=== PATIENT | male | born 1940 | race Caucasian/White ===

== ENCOUNTER 2018-08-22 12:59 | Outpatient (CLI) | payer MEDICARE ==
--- NOTE | 2018-08-22 13:51 | RAD ---
EXAM: 4 views of the lumbosacral spine HISTORY: Low back pain COMPARISON: None FINDINGS: 4 views of the lumbosacral spine shows normal height and alignment of the vertebral bodies and intervertebral discs without fracture or subluxation. Moderate posterior facet arthrosis is seen in the lumbosacral spine. Small osteophytes are seen in the upper lumbar spine. The sacroiliac joints are unremarkable. IMPRESSION: Degenerative changes of the lumbar spine without acute osseous abnormality.
== END 2018-08-22 13:00 | disposition home or self-care (01) ==
LOC: BICRAD 12:59
PROVIDERS: ATTEND Chiropractor
DX: M54.40 Lumbago with sciatica, unspecified side (principal); M47.816 Spondylosis without myelopathy or radiculopathy, lumbar region
CPT/HCPCS: 72110

== ENCOUNTER 2019-12-14 21:08 | Observation (INO) | payer MEDICARE, OTHER ==
[~2019-12-14 21:08] MED LIST: Iopamidol 370 76% 100 ML VIAL ONE
--- NOTE | 2019-12-14 21:42 | RAD ---
Portable frontal chest radiograph: 12/14/2019 Comparison: 10/11/2015 HISTORY: Substernal chest pain FINDINGS: Lungs are clear. Heart and mediastinal contours appear within normal limits. IMPRESSION: No acute findings.
[2019-12-14] MEDS ORDERED: Nitroglycerin 0.4 MG TAB 1 EACH ONE (21:49)
[2019-12-14 21:50] LABS: #Basophils 0.1 thou/uL (0.0-0.2); #Eosinphils 0.2 thou/uL (0.0-0.7); #Lymphocytes 1.7 thou/uL (1.20-3.40); #Monocytes 0.6 thou/uL (0.11-0.59); #Neutrophils 5.9 thou/uL (1.40-6.50); %Basophils 0.7 % (0.0-1.0); %Lymphocytes 20.3 % (21.0-51.0); %Monocytes 7.2 % (0.0-10.0); %Neutrophils 69.8 % (42.0-75.0); Hemoglobin 12.5 g/dL (14.0-18.0); Mean Corpuscular HGB CONC 34.7 g/dL (32.0-36.0); Mean Corpuscular Hemoglobin 31.2 pg (27.0-31.0); Mean Corpuscular Volume 90.1 fL (78.0-98.0); Mean Platelet Volume 7.4 fL (7.4-10.4); Platelet Count 199 thou/uL (130-400); RBC Distribution Width 11.5 % (11.5-14.5); White Blood Cell (WBC) Count 8.5 thou/uL (4.8-10.8)
[2019-12-14 22:08] LABS: ALT (SGPT) 20 U/L (8-55); AST (SGOT) 17 U/L (5-34); Albumin 3.9 g/dL (3.4-4.8); Alkaline Phosphatase 88 U/L (40-110); Anion Gap 10 mmol/L (10-20); BUN (Urea Nitrogen) 24 mg/dL (8.4-25.7); Bilirubin, Total 0.3 mg/dL (0.2-1.2); Calc. Creatinine Clearance 0 mL/min (70-130); Carbon Dioxide 27 mmol/L (23-31); Chloride 103 mmol/L (98-107); Estimated GFR-MDRD 52; Globulin 2.5 g/dL (2.4-3.5); Glucose 238 mg/dL (83-110); Lipase 44 U/L (8-78); Protein, Total 6.4 g/dL (5.8-8.1); Sodium 136 mmol/L (136-145)
--- NOTE | 2019-12-14 22:44 | CT ---
CT of the abdomen and pelvis: 12/14/2019 COMPARISON: None HISTORY: Upper abdominal pain with nausea TECHNIQUE: Axial CT imaging at 5 mm intervals from the lung bases through the pubic symphysis with IV contrast. Coronal and sagittal reformatted imaging obtained. FINDINGS: The lack of oral contrast limits assessment of the bowel. Mild linear interstitial density noted within the lung bases. No free intraperitoneal air or fluid. Splenic granulomata present. The liver, pancreas, and adrenal glands demonstrate no acute findings. Subcentimeter calcified stones are seen within the gallbladder. No acute renal abnormality on either side. The prostate gland is enlarged, herniating into the bladder base. No evidence for focal bowel inflammatory change or bowel obstruction. There is fecal material within a few small bowel loops within the right lower quadrant with no associated inflammatory change or dilation. The appendix is not discretely visualized but no right lower quadrant inflammatory change n oted. There is scattered atherosclerotic calcification involving the coronary arteries as well as the abdom inal aorta and its branches. Review of the osseous structures demonstrates multilevel lower lumbar spine degenerative change with no worrisome lytic or blastic bone lesion. IMPRESSION: Numerous incidental findings as detailed above. No evidence for free intraperitoneal air or small bowel obstruction.
[2019-12-14] MEDS ORDERED: Nitroglycerin 0.4 MG TAB (25 Tab Bottle) SL PRN (23:57)
--- NOTE | 2019-12-15 00:06 | PDOC.HHP ---
Hospitalist HPI - History of Present Illness Chest pain History of Present Illness: 79-year-old gentleman with a history of coronary artery disease status post stent, history of CVA, hypertension presented to the emergency department with sudden onset of chest pain which occurred at rest today. Patient described an anterior chest pain and tightness, maximum intensity 10/10, nonradiating, associated nausea and diaphoresis, no known aggravating factors, relieved by nitroglycerin and morphine. Patient denied any cough, endorsed epigastric pain. Initial troponin in the ED is negative. EKG shows no acute ischemic changes. Checks x-ray is unremarkable and shows no acute disease. CT abdomen and pelvis done also shows no acute disease. Given patient's significant CAD risk factors, he is hospitalized for ACS rule out. Hospitalist ROS - Review of Systems Other: Except as documented, all other systems reviewed and negative. - Medication Medications: Medication Instructions Recorded Confirmed Type Aspirin [Ecotrin Low Strength] 81 mg PO DAILY 10/11/15 10/11/15 History Diazepam [Valium] 5 mg PO TID PRN 10/11/15 10/11/15 History Dutasteride [Avodart] 0.5 mg PO DAILY 10/11/15 10/11/15 History Lisinopril/Hydrochlorothiazide 1 tablet PO DAILY 10/11/15 10/11/15 History [Lisinopril-Hctz 20-25 mg Tab] Multivitamin [Multivitamins] 1 cap PO DAILY 10/11/15 10/11/15 History Omeprazole Magnesium [Prilosec OTC] 20 mg PO DAILY 10/11/15 10/11/15 History Saw Shubert 500 mg PO DAILY 10/11/15 10/11/15 History Simvastatin [Zocor] 20 mg PO QPM 10/11/15 10/11/15 History Venlafaxine HCl [Venlafaxine HCl 150 mg PO DAILY 10/11/15 10/11/15 History ER] Vit A/Vit C/Vit E/Zinc/Copper 2 tablet PO BID 10/11/15 10/11/15 History [ICaps AREDS Formula] metFORMIN HCl [Metformin ER 1,000 mg PO DAILY 10/11/15 10/11/15 History Gastric] Clopidogrel Bisulfate [Plavix] 75 mg PO DAILY 10/12/15 10/12/15 History Hospitalist History - Past Medical History Cardiac: reports: CAD, HTN 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 Endocrine: reports: Diabetes - Past Surgical History Past Surgical History: reports: Other (Cardiac catheterization) Other Surgical History: Multiple ear surgeries including cochlear implant. - Family History Family History: reports: cardiac disorder (Mother and father) - Social History Smoking Status: Former smoker Alcohol: reports: None Drugs: reports: none - Exam General Appearance: NAD, awake alert Eye: PERRL, anicteric sclera ENT: normocephalic atraumatic, no oropharyngeal lesions, moist mucosa ENT - other findings: Hard of hearing. Neck: supple, symmetric, no JVD, no thyromegaly Heart: RRR, no murmur, no gallops Respiratory: CTAB, no wheezes, no rales, no ronchi, normal chest expansion Gastrointestinal: soft, non-distended, normal bowel sounds, tender to palpation (Mild epigastric tenderness) Extremities: no cyanosis, no edema Skin: normal turgor, no rashes Neurological: cranial nerve grossly intact, no weakness, no focal deficits Musculoskeletal: normal tone, normal strength Psychiatric: normal affect, normal behavior, A&O x 3 Hospitalist Results - Labs Result Diagrams: 12/14/19 21:33 12/14/19 21:33 Lab results: WBC 8.5 thou/uL (4.8-10.8) 12/14/19 21:33 Hgb 12.5 g/dL (14.0-18.0) L 12/14/19 21:33 Hct 36.0 % (42.0-52.0) L 12/14/19 21:33 MCV 90.1 fL (78.0-98.0) 12/14/19 21:33 Plt Count 199 thou/uL (130-400) 12/14/19 21:33 Neutrophils % 69.8 % (42.0-75.0) 12/14/19 21:33 Sodium 136 mmol/L (136-145) 12/14/19 21:33 Potassium 4.0 mmol/L (3.5-5.1) 12/14/19 21:33 Chloride 103 mmol/L (98-107) 12/14/19 21:33 Carbon Dioxide 27 mmol/L (23-31) 10/18/20 21:33 BUN 24 mg/dL (8.4-25.7) 12/14/19 21:33 Creatinine 1.33 mg/dL (0.7-1.3) H 12/14/19 21:33 Glucose 238 mg/dL (83-110) H 12/14/19 21:33 Calcium 9.0 mg/dL (7.8-10.44) 12/14/19 21:33 Total Bilirubin 0.3 mg/dL (0.2-1.2) 12/14/19 21:33 AST 17 U/L (5-34) 12/14/19 21:33 ALT 20 U/L (8-55) 12/14/19 21:33 Alkaline Phosphatase 88 U/L (40-110) 12/14/19 21:33 Troponin I Less than 0.010 ng/mL (< 0.028) 12/14/19 21:33 Serum Total Protein 6.4 g/dL (5.8-8.1) 12/14/19 21:33 Albumin 3.9 g/dL (3.4-4.8) 12/14/19 21:33 Lipase 44 U/L (8-78) 12/14/19 21:33 - EKG Interpretation EKG: Normal sinus rhythm. - Radiology Interpretation Chest x-ray Status: report reviewed by me (No acute disease.) Hospitalist H&P A/P - Problem (1) Chest pain Code(s): R07.9 - CHEST PAIN, UNSPECIFIED Status: Acute (2) Coronary artery disease Code(s): I25.10 - ATHSCL HEART DISEASE OF [place] CORONARY ARTERY W/O ANG PCTRS Status: Chronic (3) Diabetes mellitus type 2 in obese Code(s): E11.69 - TYPE 2 DIABETES MELLITUS WITH OTHER SPECIFIED COMPLICATION; E66.9 - OBESITY, UNSPECIFIED Status: Chronic (4) Hypertension Code(s): I10 - ESSENTIAL (PRIMARY) HYPERTENSION Status: Chronic - Plan Plan: Placed under observation. Trend troponin. Continue home dose aspirin and Plavix. Add beta-magdaleno. 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 Will request nuclear stress test. Cardiology consult.
[2019-12-15 02:03] LABS: Troponin I Less than 0.010 ng/mL (< 0.028)
[2019-12-15 04:33] VITALS: BMI 34.4
[2019-12-15 05:25] LABS: PTT 30.9 sec (22.9-36.1)
[2019-12-15 05:26] LABS: Prothrombin Time 12.9 sec (12.0-14.7)
[2019-12-15 05:50] LABS: Troponin I Less than 0.010 ng/mL (< 0.028)
--- NOTE | 2019-12-15 06:28 | PDOC.FMACP ---
Advance Care Planning - Problem (1) Chest pain Status: Acute Code(s): R07.9 - CHEST PAIN, UNSPECIFIED (2) Coronary artery disease Status: Chronic Code(s): I25.10 - ATHSCL HEART DISEASE OF [place] CORONARY ARTERY W/O ANG PCTRS (3) Diabetes mellitus type 2 in obese Status: Chronic Code(s): E11.69 - TYPE 2 DIABETES MELLITUS WITH OTHER SPECIFIED COMPLICATION; E66.9 - OBESITY, UNSPECIFIED (4) Hypertension Status: Chronic Code(s): I10 - ESSENTIAL (PRIMARY) HYPERTENSION - Note Summary: Advanced Care Planning was discussed. The diagnosis, prognosis and goals of care were discussed. Appropriate forms and documentation to accomplish the goals of care were discussed. All questions were answered. Patient wishes to be full code. No life support. He stated he is in the process of documenting his will. No living will. His son Rikki Geller is medical decision maker. I discussed the need to document a living Will and MPOA with him. Time Spent (mins): 17
[2019-12-15] MEDS ORDERED: Aspirin 81 mg Enteric Coated Tablet PO SCH (09:00)
[2019-12-15] MEDS ORDERED: Enoxaparin Sodium 40 MG/0.4 ML SYRINGE SC SCH (09:00)
[2019-12-15] MEDS ORDERED: Clopidogrel Bisulfate 75 MG TAB PO SCH (09:00)
[2019-12-15 11:10] LABS: SARS-CoV-2 MS2 Positive; SARS-CoV-2 N Gene Negative; SARS-CoV-2 S Gene Negative; SARS-CoV-2 by NAA Not Detected (NotDetected); SARS-CoV-2 orf1ab Negative
--- NOTE | 2019-12-15 11:30 | CON ---
DATE OF CONSULTATION: 12/15/2019 INDICATION FOR CONSULTATION: An 79-year-old patient with history of known coronary artery disease, who underwent angioplasty and stent placement several years ago by Dr. Sukhwinder Villanueva at [facility]. He has not been seen by Dr. Villanueva in over five years. He normally follows up with his primary care physician, Dr. Wan. He was sitting at home yesterday after he had eaten two hot dogs, had some 7up and also some cookies and had sudden onset of lower sternal and abdominal pain. The pain did not radiate, but did have it across the abdominal area. He had chest pain in the mid to lower chest. He describes the pain as being 10/10. The pain lasted for at least 15 minutes. An ambulance was called. He still continued to have pain. In the ambulance, he was given nitroglycerin paste and also sublingual nitroglycerin. When he arrived in the emergency room, he was still having chest pain 7 to 8/10. Enzymes have been negative x3. EKG was unremarkable and at this time, he still has some abdominal discomfort, but otherwise has been doing quite well. Also with pain, he developed nausea and diaphoresis. He said he could not breathe due to the pain and even now when he takes a deep breath or coughs, he still has some abdominal discomfort. It would appear that this may likely be GI, since the EKG is unremarkable after having pain 7 to 8/10 in the emergency room and no EKG changes to indicate ischemia and cardiac enzymes are negative. He has been admitted and ruled out for myocardial infarction. The enzymes are negative. A stress test has been ordered; however, the patient did suffer a CVA in 2000 and is unable to lift his right arm above the level of the shoulder, making it very difficult to get the arm out of the way for the nuclear evaluation. He has had his last stress test was more than [address] Sukhwinder Villanueva[address] He attempt to do a treadmill. He was unable to do this successfully either and he apparently had no stress test since that time, but has been very active, working outside and staying busy without symptoms until yesterday when he had the sudden onset of pain, which he describes as just a terrible pain. He did not state it as burning or heavy pressure. He just said it was so bad he could not explain what it was. PAST MEDICAL HISTORY: Significant for coronary artery disease, angioplasty and stent placement, and CVA in 2000. He has some right-sided deficits affecting the right arm and right leg, but the right leg is relatively reasonable. He can do what he wants to do most of the time. He has a history of diabetes. He tells me he did not take any medicines for diabetes; however. He has history of hypertension. He has had eye surgery. He has had skin cancers. He has had cochlear implants. He has had cataract surgery. He states he has been diagnosed with COPD and has irritable bowel syndrome. MEDICATIONS: He is uncertain as to which medications he is taking, but does know he is taking aspirin a day and he takes one Valium at night. He also was taking blood pressure medications, which he believes is lisinopril. His son is to bring his list of his medications. He reportedly is also taking medications for his cholesterol, but we do not have the correct list of his medications. He says he does not take any meds for the DM. SOCIAL HISTORY: He smoked in the past, but no longer smokes. There is no significant alcohol use. He still stays very active. He lives at home. ALLERGIES: NONE. REVIEW OF SYSTEMS: HEENT: He has false teeth. He has had cataract surgery. He has hearing aid with a cochlear implant on the right side. He has had also I believe on the left side, he has had some type of surgery on the ear. I believe he has had stapes implant. PULMONARY: He denies any history of any recent shortness of breath, asthma, or emphysema, but does state that he has been diagnosed in the past with COPD, but denies any shortness of breath. CARDIOVASCULAR: He has had no palpitations. He mainly complains of pain as noted in the history of present illness. ABDOMEN: He says he has irritable bowel syndrome. He says he does not eat correctly. Otherwise, no nausea, vomiting, or diarrhea. He said he does have loose stools or he has urgency, most likely due to irritable bowel syndrome. : He had no urinary complaints such as dysuria, polyuria, or hematuria. He does have prostate problems. He has benign prostatic hypertrophy and I believe he is taking saw palmetto. EXTREMITIES: He has some residual weakness in the right lower extremity and also was unable to lift the right arm above the level of the shoulder due to the previous CVA. He gets leg cramps at night. NEUROLOGIC: He has had no history of seizures or syncope, but when he did say he had a syncopal episode about a year ago, he said he got up out of a chair and fell down, had a laceration to his head. Apparently, he did not seek medical treatment at that time. He has had no further episodes of syncope. This may have been due to hypotension, apparently, he has not been evaluated fully. He has had no further episodes. PHYSICAL EXAMINATION: GENERAL: Reveals a well-developed elderly gentleman, who is in no acute distress at this time. He is alert. He is oriented. VITAL SIGNS: Show a blood pressure of 143/67 and respiratory rate is 20. He is afebrile. Heart rates in the 60s and shows a sinus rhythm. HEENT: Shows the head to be normocephalic and atraumatic. He has bilateral carotid pulses without bruits. He has a right posterior occipital area cochlear implant. CHEST: Clear to auscultation without any rales, rhonchi, or wheezing. CARDIOVASCULAR: Revealed a regular rate and rhythm at this time. There were no significant murmurs, heaves, thrills, bruits, or rubs noted. ABDOMEN: Shows some tenderness in the mid abdominal area and upper epigastric area, but I cannot palpate any masses. Positive bowel sounds are present. EXTREMITIES: Showed no clubbing, cyanosis, or edema. Pedal pulses are present. He does have some stiffness in the right upper extremity, where he cannot lift it. He has some limitation of movement I should say. He is unable to lift that elbow at least even to the level of the shoulder hardly. SKIN: Warm and dry. LABORATORY DATA: Showed cardiac enzymes are negative x3. WBC was 8.5, hemoglobin was 12.5, and platelet count was 199,000. AST was 17. His blood sugar was 238, BUN was 24, creatinine 1.33, sodium was 136, and potassium 4.0. IMPRESSION AND PLAN: 1. Chest pain, which is most likely noncardiac since the patient had no EKG changes and still had pain 7 to 8/10 when he arrived in the emergency room and negative enzymes x3, even though he does have a history of coronary artery disease in the past and stent placement. There is no indication that this was cardiac at this time. The pain was not relieved by the nitroglycerin. He may have had some mild relief, which certainly could be due to esophageal spasm, but also with smooth muscle could relieve some of the discomfort. His chest pain is still only minimal at this time, but mainly appears to be more abdominal and epigastric area. He does have some discomfort when he coughs or takes a deep breath. 2. Diabetes. He tells me he is not taking any medications for this and certainly may be the case with a blood sugar of 238. His son is to call us with a list of the medications. 3. Hypertension. This is under relatively good control at this time and can be monitored on outpatient basis either by the primary care physician or by the commissary clerk. At this time, I believe the patient since he is unable to take a stress test because he cannot lift the arm and is most likely not able to do a good treadmill study. There is no indication at this time to proceed with cardiac catheterization since the enzymes are negative and EKG is unremarkable and his pain is significantly improved. I would suggest perhaps he see a Gastroenterology for possible upper endoscopy. Otherwise, I believe he is stable for discharge. Job ID: [id number] [facility]
[2019-12-15 12:20] VITALS: BP 139/63; TEMP 98.1
--- NOTE | 2019-12-16 10:46 | DIS ---
DATE OF ADMISSION: 12/14/2019 DATE OF DISCHARGE: 12/15/2019 DISCHARGE DISPOSITION: To home. PRIMARY DISCHARGE DIAGNOSIS: Noncardiac chest pain. SECONDARY DISCHARGE DIAGNOSES: History of coronary artery disease, hypertension, history of cerebrovascular accident, depression, benign prostatic hypertrophy, and diabetes mellitus type 2. PROCEDURES DONE DURING HOSPITALIZATION: CT abdomen and pelvis done, showed no evidence of free intraperitoneal air or small-bowel obstruction. Chest x-ray done, showed no acute finding. H and H 12 and 36, platelet count 199, white count of 8.5 with 69% neutrophils. COVID-19 PCR was negative on 12/15/2019. BUN 24, creatinine 1.3. Troponin x3 negative. DISCHARGE MEDICATIONS: The patient to continue all his home medication as before. 1. Aspirin 81 mg p.o. daily. 2. Lipitor 80 mg p.o. daily. 3. Escitalopram 10 mg p.o. daily. 4. Finasteride 5 mg p.o. daily. 5. Hydralazine 5 mg p.o. daily. 6. Lisinopril with hydrochlorothiazide 20/25 mg one tablet daily. 7. Multivitamin one capsule daily. 8. Omeprazole 40 mg daily. 9. Valium 5 mg p.o. 3 times daily p.r.n. ALLERGIES: NO KNOWN DRUG ALLERGIES. DISCHARGE PLAN: The patient to follow up with his primary care physician in 1 week, and he also needs to re-establish the followup with Dr. Sukhwinder Villanueva, his events specialist. BRIEF COURSE DURING HOSPITALIZATION: The patient initially came in with complaints of chest discomfort which was more in the epigastric area. It was associated with some nausea and diaphoresis. In view of multiple risk factors, the patient was placed under observation on telemetry and ACS evidence based protocol followed. Three sets of troponin were negative. Chest x-ray and CT of the abdomen and pelvis did not reveal any acute pathology. The patient did not want to undergo nuclear stress test as he could not lift his arm up. He was evaluated by Dr. Vergara for Cardiology. The patient's pain was noncardiac in nature, and he is being discharged to home. He has been chest pain free and ambulating and eating well prior to discharge. He needs to follow up with his primary care physician in 1 week. Please note, I have seen and examined the patient on the day of discharge. Job ID: [id number]
== END 2019-12-15 15:42 | disposition home or self-care (01) ==
LOC: ERS 21:08 → 2SW 23:29
PROVIDERS: ADMIT Internal Medicine; ATTEND Internal Medicine
DX: R07.89 Other chest pain (principal); I25.10 Atherosclerotic heart disease of native coronary artery without angina pectoris; I10 Essential (primary) hypertension; E11.9 Type 2 diabetes mellitus without complications; F32.9 Major depressive disorder, single episode, unspecified; N40.0 Benign prostatic hyperplasia without lower urinary tract symptoms; E66.9 Obesity, unspecified; Z68.34 Body mass index [BMI] 34.0-34.9, adult; Z20.828 Contact with and (suspected) exposure to other viral communicable diseases; Z79.82 Long term (current) use of aspirin; Z79.899 Other long term (current) drug therapy; Z86.73 Personal history of transient ischemic attack (TIA), and cerebral infarction without residual deficits; Z87.891 Personal history of nicotine dependence; Z95.5 Presence of coronary angioplasty implant and graft
CPT/HCPCS: 71045; 74177; 80053; 82962; 83690; 84484 ×3; 85025; 85610; 85730; 93005; 94760; 99285; U0003; 36415; 36416; 87635; 96372; G0378; J1650; Q9967

== ENCOUNTER 2020-02-03 17:50 | Inpatient (IN) | payer MEDICARE ==
[~2020-02-03 17:50] MED LIST changes: -Iopamidol 370 76% 100 ML VIAL ONE; +Iopamidol-370 76% 500 ML 1 ML ONE
[2020-02-03] MEDS ORDERED: Albuterol 200 PUFF (6.7GM INHALER) ONE (18:39)
--- NOTE | 2020-02-03 18:45 | RAD ---
XR Chest 1 View Portable History: Covid pneumonia Comparison: Radiograph December 14, 2019 Findings: Abnormal peripheral and perihilar airspace opacities. No pneumothorax. Cardiac silhouette a nd mediastinal contours are within normal limits. No acute osseous abnormality. Advanced degenerative changes of both glenohumeral joints. Impression: Commonly reported imaging findings of COVID-19 pneumonia.
[2020-02-03] MEDS ORDERED: cefTRIAXone\\ROCEPHIN 2 GM VIAL ONE (18:52)
[2020-02-03 19:11] LABS: #Lymphocytes 0.6 thou/uL (1.20-3.40); #Monocytes 0.7 thou/uL (0.11-0.59); %Basophils 0.1 % (0.0-1.0); %Eosinophils 0.2 % (0.0-10.0); %Lymphocytes 4.2 % (21.0-51.0); %Monocytes 4.7 % (0.0-10.0); %Neutrophils 90.9 % (42.0-75.0); Hemoglobin 11.9 g/dL (14.0-18.0); Mean Corpuscular HGB CONC 35.3 g/dL (32.0-36.0); Mean Corpuscular Hemoglobin 31.2 pg (27.0-31.0); Mean Corpuscular Volume 88.5 fL (78.0-98.0); Mean Platelet Volume 7.3 fL (7.4-10.4); Platelet Count 238 thou/uL (130-400); White Blood Cell (WBC) Count 15.4 thou/uL (4.8-10.8)
[2020-02-03 19:33] LABS: ALT (SGPT) 25 U/L (8-55); AST (SGOT) 20 U/L (5-34); Albumin 3.4 g/dL (3.4-4.8); Alkaline Phosphatase 70 U/L (40-110); Anion Gap 15 mmol/L (10-20); BUN (Urea Nitrogen) 29 mg/dL (8.4-25.7); Bilirubin, Total 0.4 mg/dL (0.2-1.2); Calc. Creatinine Clearance 0 mL/min (70-130); Carbon Dioxide 21 mmol/L (23-31); Chloride 101 mmol/L (98-107); Globulin 2.5 g/dL (2.4-3.5); Glucose 358 mg/dL (83-110); Potassium 4.3 mmol/L (3.5-5.1); Protein, Total 5.9 g/dL (5.8-8.1); Sodium 133 mmol/L (136-145)
[2020-02-03] MEDS ORDERED: Lorazepam 2 MG/ML VIAL ONE (22:10)
[2020-02-03 22:15] LABS: Lactic Acid 1.7 mmol/L (0.5-2.2)
--- NOTE | 2020-02-03 22:29 | CT ---
CTA Angio Chest W WO Con History: Covid pneumonia with shortness of breath Comparison: Chest radiograph same day Findings: CT angiogram chest performed after the intravenous administration of contrast. 3-D renderin g provided. No proximal segmental pulmonary arterial filling defect. Calcified granulomas of the spleen. No pericardial effusion. Reactive mediastinal lymph nodes. Mild-moderate peripheral patchy airspace opacities of the lungs along with a component of peripheral fibrosis. No pneumothorax or pneumomediastinum. Small volume to be within the distal trachea. Thoracic spine is intact. Sternum and manubrium are intact. No acute osseous abnormality. Impression: 1. Mild Imaging findings of Covid-19 pneumonia. No pneumothorax or pneumomediastinum. 2. No pulmonary embolism.
[2020-02-03] MEDS ORDERED: Acetaminophen 325 MG TAB PO PRN (23:48)
[2020-02-03] MEDS ORDERED: Albuterol Sulfate 2.5 mg/3 ml Neb NEB PRN (23:53)
--- NOTE | 2020-02-04 00:13 | PDOC.BPN ---
- Brief Progress Note [id number] HP dictated
[2020-02-04] MEDS ORDERED: Albuterol 200 PUFF (6.7GM INHALER) INH PRN (00:15)
[2020-02-04] MEDS ORDERED: Dextrose 5% in Water 1,000 ML IV PRN (00:17)
[2020-02-04] MEDS ORDERED: Dextrose 50% Abboject 50 ML SYRINGE SLOW IVP PRN (00:17)
--- NOTE | 2020-02-04 01:01 | HP ---
CHIEF COMPLAINT: Shortness of breath. HISTORY OF PRESENT ILLNESS: An 79-year-old male with past medical history of COPD, CVA with right-sided deficits, hyperlipidemia, diabetes, hypertension, skin cancer, among others, presents to the emergency room with worsening shortness of breath. The patient was recently diagnosed COVID on Sunday and has been having increasing shortness of breath since then. In the emergency room, the patient was in obvious respiratory distress, tachypneic. The patient was placed on nasal cannula 2 L. Oxygen saturation 94%. Workup in the emergency room, the patient was found to have glucose of 358, BUN is 29, creatinine 1.3, sodium 133, D-dimer was 2.0. Chest x-ray showed findings compatible with COVID pneumonia. The patient in the emergency room was placed on oxygen and being admitted to the hospital for further management. PAST MEDICAL HISTORY: As mentioned above in history of present illness. PAST SURGICAL HISTORY: 1. Cardiac stent. 2. Multiple ear surgeries. PAST PSYCHIATRIC HISTORY: Anxiety and depression. SOCIAL HISTORY: He lives at home with family. Denies alcohol use. Denies drug use. He is a former cigarette smoker. ALLERGIES: NO KNOWN ALLERGIES. HOME MEDICATIONS: See home medication reconciliation form for updated medications. REVIEW OF SYSTEMS: Review of 14 systems negative except what is mentioned in history of present illness. PHYSICAL EXAMINATION: GENERAL: Patient is awake, in moderate respiratory distress. VITAL SIGNS: Blood pressure 170/45, respiratory rate is 24, temperature 98.1, oxygen saturation is 93% on 3 L nasal cannula. HEAD AND NECK: Normocephalic, atraumatic. NECK: Supple. CHEST: Coarse bilateral breath sounds. Respirations are labored. HEART: S1, S2 regular. ABDOMEN: Soft. Bowel sounds present. NEUROLOGIC: Awake. PSYCH: Unable to assess. EXTREMITIES: No clubbing, no cyanosis. GENITOURINARY: No suprapubic tenderness. No flank tenderness. LABORATORY DATA: As mentioned above in history of present illness. IMAGING STUDIES: As mentioned above in history of present illness. ASSESSMENT: 1. Pneumonia secondary to COVID-19 virus infection. 2. Chronic obstructive pulmonary disease with exacerbation. 3. COVID-19 virus infection. 4. Diabetes mellitus, hyperglycemia. 5. Acute kidney injury. 6. Hypertension. PLAN: 1. Admit. 2. Oxygen to keep saturation more than 92%. 3. Bronchodilators. 4. IV dexamethasone. 5. Reconcile home medications. 6. DVT prophylaxis as appropriate. 7. Expected length of stay, 2 midnights or more. Job ID: [id number]
[2020-02-04] MEDS ORDERED: HumaLOG 300 UNITS/3 ML VIAL ONE (03:42)
[2020-02-04] MEDS: HumaLOG 300 UNITS/3 ML VIAL SC PRN ×2 (03:49→21:49)
[2020-02-04 06:42] VITALS: BMI 33.3
[2020-02-04] MEDS: Enoxaparin Sodium 40 MG/0.4 ML SYRINGE SC SCH (07:45)
[2020-02-04] MEDS: Famotidine/PF 20 mg/2ml Vial SLOW IVP SCH ×2 (07:45→21:27)
--- NOTE | 2020-02-04 09:48 | PDOC.HOSPP ---
- Subjective Encounter Date: 02/04/20 Encounter Time: 09:45 Subjective: cough, sob especially with exertion, pleuritic chest pain - Objective Vital Signs & Weight: Vital Signs (12 hours) Temp Pulse Resp BP Pulse Ox 02/04/20 09:11 99 02/04/20 08:36 97.9 F 73 16 131/66 99 02/04/20 06:25 97.7 F 76 20 170/71 H 99 Weight Weight 231 lb 12.8 oz Result Diagrams: 02/03/20 18:56 02/03/20 18:56 Additional Labs: Accuchecks 02/04/20 02/04/20 04:37 03:03 POC Glucose 275 H 274 H Hospitalist ROS - Medication Medications: Active Medications Generic Name Dose Route Start Last Admin Trade Name Freq PRN Reason Stop Dose Admin Enoxaparin Sodium 40 mg 02/04/20 09:00 02/04/20 07:45 Enoxaparin Sodium 40 Mg/0.4 Ml Syringe SC 40 mg 0900 ABHILASH Administration Famotidine 20 mg 02/04/20 09:00 02/04/20 07:45 Famotidine/Pf 20 Mg/2ml Vial SLOW IVP 20 mg Q12HR ABHILASH Administration Insulin Human Lispro 0 units 02/04/20 00:17 02/04/20 03:49 Humalog 300 Units/3 Ml Vial SC 6 units .MODERATE SLIDING SC PRN Administration Moderate Correctional Scale - Exam General Appearance: awake alert Neck: no JVD Heart: RRR, no murmur Respiratory - other findings: fine rales post lungs Gastrointestinal: soft, non-tender, normal bowel sounds Extremities: no edema Hosp A/P (1) Pneumonia due to COVID-19 virus Code(s): U07.1 - COVID-19; J12.89 - OTHER VIRAL PNEUMONIA Status: Acute (2) DM type 2 (diabetes mellitus, type 2) Status: Acute Qualifiers: Diabetes mellitus infantry assaultman insulin use: without senior care use Diabetes mellitus complication status: with kidney complications Diabetes mellitus complication detail: with other kidney complication Qualified Code(s): E11.29 - Type 2 diabetes mellitus with other diabetic kidney complication (3) Acute respiratory failure with hypoxemia Code(s): J96.01 - ACUTE RESPIRATORY FAILURE WITH HYPOXIA Status: Acute (4) Coronary artery disease Code(s): I25.10 - ATHSCL HEART DISEASE OF [place] CORONARY ARTERY W/O ANG PCTRS Status: Chronic Qualifiers: Coronary Disease-Associated Artery/Lesion type: [place] artery [place] vs. transplanted heart: [place] heart Associated angina: without angina Qualified Code(s): I25.10 - Atherosclerotic heart disease of [place] coronary artery without angina pectoris (5) Hypertension Code(s): I10 - ESSENTIAL (PRIMARY) HYPERTENSION Status: Chronic - Plan cont iv steroids cont O2 supplement ordered inflammatory markers will discuss with ID
[2020-02-04] MEDS: Dexamethasone 6 MG in Sodium Chloride 0.9% 50 ML IVPB SCH (10:48)
[2020-02-04] MEDS ORDERED: Aspirin 81 mg Enteric Coated Tablet PO SCH (20:45)
[2020-02-04] MEDS: Atorvastatin Calcium 40 MG TAB PO SCH (21:27)
[2020-02-04] MEDS: Diazepam 5 MG TAB PO PRN (21:28)
[2020-02-05] MEDS: Enoxaparin Sodium 40 MG/0.4 ML SYRINGE SC SCH (07:49)
[2020-02-05] MEDS: Aspirin 81 mg Enteric Coated Tablet PO SCH (07:49)
[2020-02-05] MEDS: Famotidine/PF 20 mg/2ml Vial SLOW IVP SCH ×2 (07:49→21:01)
[2020-02-05] MEDS ORDERED: FLU VACC QS2020-21(65YR UP)/PF 240 MCG/0.7 ML SYRINGE IM ONE (08:45)
[2020-02-05 10:15] LABS: Hemoglobin 12.4 g/dL (14.0-18.0); Mean Corpuscular Hemoglobin 30.7 pg (27.0-31.0); Mean Corpuscular Volume 90.4 fL (78.0-98.0); Mean Platelet Volume 7.1 fL (7.4-10.4); Platelet Count 266 thou/uL (130-400); RBC Distribution Width 11.2 % (11.5-14.5); Red Blood Cell (RBC) Count 4.05 mill/uL (4.70-6.10); White Blood Cell (WBC) Count 12.8 thou/uL (4.8-10.8)
[2020-02-05 10:38] LABS: Anion Gap 12 mmol/L (10-20); BUN (Urea Nitrogen) 22 mg/dL (8.4-25.7); Calc. Creatinine Clearance 91 mL/min (70-130); Calcium 9.1 mg/dL (7.8-10.44); Carbon Dioxide 27 mmol/L (23-31); Chloride 103 mmol/L (98-107); Glucose 131 mg/dL (83-110); Sodium 138 mmol/L (136-145)
[2020-02-05] MEDS: Dexamethasone 6 MG in Sodium Chloride 0.9% 50 ML IVPB SCH (10:52)
[2020-02-05] MEDS: HumaLOG 300 UNITS/3 ML VIAL SC PRN ×3 (11:00→21:26)
--- NOTE | 2020-02-05 15:08 | PDOC.HOSPP ---
- Subjective Encounter Date: 02/05/20 Encounter Time: 09:00 Subjective: F/u: COVID The patient states his [facility] nurse found him with hypoxia and he was diagnosed with COVID last Sunday. He has only a minimal cough that he can't clear up as much. His oxygen saturation was noted to be 100% on 2L nasal cannula. - Objective Vital Signs & Weight: Vital Signs (12 hours) Temp Pulse Resp BP Pulse Ox 02/05/20 11:38 97.8 F 62 16 116/65 100 02/05/20 08:47 98 02/05/20 08:45 98.3 F 52 L 16 117/67 98 02/05/20 05:00 98.0 F 52 L 18 123/67 95 Weight Weight 231 lb 12.8 oz I&O: 02/04/20 02/05/20 02/06/20 06:59 06:59 06:59 Intake Total 1010 Balance 1010 Result Diagrams: 02/05/20 09:49 02/05/20 09:49 Additional Labs: Accuchecks 02/05/20 02/05/20 02/04/20 10:56 05:58 21:42 POC Glucose 197 H 173 H 262 H 02/04/20 15:49 POC Glucose 158 H Hospitalist ROS - Review of Systems Constitutional: denies: fever, chills - Medication Medications: Active Medications Generic Name Dose Route Start Last Admin Trade Name Freq PRN Reason Stop Dose Admin Aspirin 81 mg 02/05/20 09:00 02/05/20 07:49 Aspirin 81 Mg Enteric Coated Tablet PO 81 mg DAILY ABHILASH Administration Atorvastatin Calcium 80 mg 02/04/20 21:00 02/04/20 21:27 Atorvastatin Calcium 40 Mg Tab PO 80 mg HS ABHILASH Administration Diazepam 5 mg 02/04/20 19:44 02/04/20 21:28 Diazepam 5 Mg Tab PO 5 mg TID PRN Administration Anxiety Enoxaparin Sodium 40 mg 02/04/20 09:00 02/05/20 07:49 Enoxaparin Sodium 40 Mg/0.4 Ml Syringe SC 40 mg 0900 ABHILASH Administration Famotidine 20 mg 02/04/20 09:00 02/05/20 07:49 Famotidine/Pf 20 Mg/2ml Vial SLOW IVP 20 mg Q12HR ABHILASH Administration Dexamethasone 6 mg/ Sodium 50.6 mls @ 100 mls/hr 02/04/20 12:00 02/05/20 10:52 Chloride IVPB 50.6 mls 1200 ABHILASH Administration Insulin Human Lispro 0 units 02/04/20 00:17 02/05/20 11:00 Humalog 300 Units/3 Ml Vial SC 2 units .MODERATE SLIDING SC PRN Administration Moderate Correctional Scale - Exam General Appearance: NAD, awake alert Eye: PERRL, anicteric sclera ENT: normocephalic atraumatic, no oropharyngeal lesions Neck: no JVD Heart: RRR, no murmur, no gallops, no rubs Respiratory: CTAB, no wheezes, no rales, no ronchi Gastrointestinal: soft, non-tender, non-distended, normal bowel sounds Extremities: no cyanosis, no clubbing, no edema Skin: normal turgor, no lesions, no rashes Neurological: cranial nerve grossly intact, normal sensation to touch, no weakness Musculoskeletal: normal tone, normal strength, no muscle wasting Psychiatric: A&O x 3 Hosp A/P - Plan CTA: patchy airspace opacities, mediastinal lymphadenopathy and peripheral fibrosis THis is an 79 year old male with COVID who presented with increasing hypoxia and diagnosed with COVID pneumonia Acute hypoxic respiratory failure secondary to COVID pneumonia - CTA shows patchy airspace opacities. He is on 2L of oxygen. Will attempt to wean oxygen down. WBC has been decreased to 12.8 - will start doxycycline. D-dimer is 2, will repeat tomorrow if trending up will consider adding anticoagulation - discussed with Dr. Brooks, will add remdesivir as well given advanced age CAD - continue aspirin and statin Depression - continue celexa GERD - will resume protonix BPH - continue finasteride Dispo: attempt to wean oxygen down prior to dc
[2020-02-05] MEDS ORDERED: REMDESIVIR (EUA) 200 MG in Sodium Chloride 0.9% 250 ML 210 ML IV SCH (16:00)
[2020-02-05] MEDS: Doxycycline 100 MG CAP PO SCH (21:01)
[2020-02-05] MEDS: guaiFENesin ER 600 MG TAB PO SCH (21:01)
[2020-02-05] MEDS: Diazepam 5 MG TAB PO PRN (21:01)
[2020-02-05] MEDS: Atorvastatin Calcium 40 MG TAB PO SCH (21:01)
[2020-02-06] MEDS: Enoxaparin Sodium 40 MG/0.4 ML SYRINGE SC SCH (08:20)
[2020-02-06] MEDS: Escitalopram Oxalate 10 mg Tablet PO SCH (08:20)
[2020-02-06] MEDS: Doxycycline 100 MG CAP PO SCH ×2 (08:20→21:32)
[2020-02-06] MEDS: Finasteride 5 MG TAB PO SCH (08:20)
[2020-02-06] MEDS: guaiFENesin ER 600 MG TAB PO SCH ×2 (08:20→21:32)
[2020-02-06] MEDS: Aspirin 81 mg Enteric Coated Tablet PO SCH (08:20)
[2020-02-06] MEDS: Famotidine/PF 20 mg/2ml Vial SLOW IVP SCH ×2 (08:20→21:32)
[2020-02-06] MEDS: Dexamethasone 6 MG in Sodium Chloride 0.9% 50 ML IVPB SCH (11:21)
--- NOTE | 2020-02-06 13:20 | PQF ---
CLINICAL DOCUMENTATION CLARIFICATION FORM: Dear Dr. Larsen Date: 02/06/20 Please exercise your independent, professional judgment in responding to the clarification form. Clinical indicators are provided on the bottom of this form for your review. Please check appropriate box(es): [ ] Sepsis due to: [ ] Severe sepsis with associated acute organ dysfunction: [ ] Acute Respiratory Failure [ ] Acute Kidney injury w/o ATN [ ] Acute Kidney Injury w ATN [ ] Encephalopathy (metabolic) (septic) [ ] Disseminated Intravascular Coagulopathy (DIC) [ ] Hepatic Failure [ ] Additional/Other: please specify: [ X ] Localized infection without sepsis [ ] SIRS due to non-infectious process (please specify etiology) [ ] with organ dysfunction [ ] without organ dysfunction [ ] Other diagnosis [ ] Unable to determine In addition, please specify: Present on Admission (POA): [X ] Yes [ ] No [ ] Unable to determine For continuity of documentation, please document condition throughout progress notes and discharge summary. Thank You. To be completed by CDI/Coding staff for physician review: CLINICAL INDICATORS - SIGNS / SYMPTOMS / LABS / RESULTS AND LOCATION IN MR IV ROCEPHIN (ER) IV FLUIDS (ER) REMDESIVIR (02/05-02/08) VIBRAMYCIN (02/04-PRESENT) BLOOD CULTURES 02/02 RISK FACTORS / RESULTS AND LOCATION IN MR COVID 19 (H&P- [facility]) PNEUMONIA (H&P- [facility]) TREATMENTS / RESULTS AND LOCATION IN MR IV ROCEPHIN (ER) IV FLUIDS (ER) REMDESIVIR (02/05-02/08) VIBRAMYCIN (02/04-PRESENT) BLOOD CULTURES 02/02 CDS Signature: Tammy Hinkle RN Phone #: [phone] Date: 02/06/20 This is a permanent part of the Medical Record [facility]
--- NOTE | 2020-02-06 13:23 | PDOC.HOSPP ---
- Subjective Encounter Date: 02/06/20 Encounter Time: 11:00 Subjective: F/u: COVID The patient has been weaned down to 1L oxygen. He has mild dry cough, but otherwise no complaints. He is unable to get up his cough - Objective Vital Signs & Weight: Vital Signs (12 hours) Temp Pulse Resp BP Pulse Ox 02/06/20 11:43 98.1 F 74 24 H 133/69 100 02/06/20 08:42 98.2 F 56 L 20 135/72 99 Weight Weight 231 lb 12.8 oz I&O: 02/05/20 02/06/20 02/07/20 06:59 06:59 06:59 Intake Total 1010 1020 Balance 1010 1020 Result Diagrams: 02/05/20 09:49 02/05/20 09:49 Additional Labs: Accuchecks 02/06/20 02/05/20 02/05/20 11:27 21:16 15:28 POC Glucose 148 H 327 H 218 H Hospitalist ROS - Review of Systems Constitutional: denies: fever, chills - Medication Medications: Active Medications Generic Name Dose Route Start Last Admin Trade Name Freq PRN Reason Stop Dose Admin Aspirin 81 mg 02/05/20 09:00 02/06/20 08:20 Aspirin 81 Mg Enteric Coated Tablet PO 81 mg DAILY ABHILASH Administration Atorvastatin Calcium 80 mg 02/04/20 21:00 02/05/20 21:01 Atorvastatin Calcium 40 Mg Tab PO 80 mg HS ABHILASH Administration Diazepam 5 mg 02/04/20 19:44 02/05/20 21:01 Diazepam 5 Mg Tab PO 5 mg TID PRN Administration Anxiety Doxycycline Hyclate 100 mg 02/05/20 21:00 02/06/20 08:20 Doxycycline 100 Mg Cap PO 100 mg BID ABHILASH Administration Enoxaparin Sodium 40 mg 02/04/20 09:00 02/06/20 08:20 Enoxaparin Sodium 40 Mg/0.4 Ml Syringe SC 40 mg 09 ABHILASH Administration Escitalopram Oxalate 10 mg 02/06/20 09:00 02/06/20 08:20 Escitalopram Oxalate 10 Mg Tablet PO 10 mg DAILY ABHILASH Administration Famotidine 20 mg 02/04/20 09:00 02/06/20 08:20 Famotidine/Pf 20 Mg/2ml Vial SLOW IVP 20 mg Q12HR ABHILASH Administration Finasteride 5 mg 02/06/20 09:00 02/06/20 08:20 Finasteride 5 Mg Tab PO 5 mg DAILY ABHILASH Administration Guaifenesin 600 mg 02/05/20 21:00 02/06/20 08:20 Guaifenesin Er 600 Mg Tab PO 600 mg Q12HR ABHILASH Administration Dexamethasone 6 mg/ Sodium 50.6 mls @ 100 mls/hr 02/04/20 12:00 02/06/20 11:21 Chloride IVPB 50.6 mls 1200 ABHILASH Administration Insulin Human Lispro 0 units 02/04/20 00:17 02/05/20 21:26 Humalog 300 Units/3 Ml Vial SC 8 units .MODERATE SLIDING SC PRN Administration Moderate Correctional Scale Pantoprazole Sodium 40 mg 02/06/20 09:00 02/06/20 08:20 Pantoprazole 40 Mg Tab PO 40 mg DAILY ABHILASH Administration - Exam General Appearance: NAD, awake alert Eye: PERRL, anicteric sclera ENT: normocephalic atraumatic, no oropharyngeal lesions Neck: no JVD Heart: RRR, no murmur, no gallops, no rubs Respiratory: CTAB, no wheezes, no rales, no ronchi Gastrointestinal: soft, non-tender, non-distended, normal bowel sounds Extremities: no cyanosis, no clubbing, no edema Skin: normal turgor, no lesions, no rashes Neurological: cranial nerve grossly intact, normal sensation to touch, no weakness Hosp A/P - Plan Consults: Palliative Care CTA: patchy airspace opacities, mediastinal lymphadenopathy and peripheral fibrosis THis is an 79 year old male with COVID who presented with increasing hypoxia and diagnosed with COVID pneumonia Acute hypoxic respiratory failure secondary to COVID pneumonia - CTA shows patchy airspace opacities. He is down to 1L of oxygen. Continue remdesivir day 2 and doxycycline day 2. Will add ceftriaxone - repeat CBC today. D-dimer is downtrending CAD - continue aspirin and statin Depression - continue celexa GERD - continue protonix BPH - continue finasteride Dispo: attempt to wean oxygen down prior to dc . Will be here to completion of remdesivir
[2020-02-06] MEDS: SODIUM CHLORIDE 0.9% IVPB SCH (13:58)
[2020-02-06] MEDS: CEFTRIAXONE ROCEPHIN IVPB SCH (13:58)
[2020-02-06] MEDS ORDERED: cefTRIAXone\\ROCEPHIN 1 GM in Sodium Chloride 0.9% 100 ML IVPB ONE (13:58)
[2020-02-06] MEDS: REMDESIVIR (EUA) 100 MG in Sodium Chloride 0.9% 250 ML 230 ML IV SCH (15:02)
[2020-02-06 15:06] LABS: Hemoglobin 11.8 g/dL (14.0-18.0); Mean Corpuscular HGB CONC 34.5 g/dL (32.0-36.0); Mean Corpuscular Hemoglobin 30.9 pg (27.0-31.0); Mean Corpuscular Volume 89.4 fL (78.0-98.0); Mean Platelet Volume 7.2 fL (7.4-10.4); Platelet Count 270 thou/uL (130-400); RBC Distribution Width 11.4 % (11.5-14.5); Red Blood Cell (RBC) Count 3.82 mill/uL (4.70-6.10)
[2020-02-06] MEDS: HumaLOG 300 UNITS/3 ML VIAL SC PRN ×2 (17:21→21:46)
[2020-02-06] MEDS: Atorvastatin Calcium 40 MG TAB PO SCH (21:32)
[2020-02-06] MEDS: Diazepam 5 MG TAB PO PRN (21:32)
[2020-02-07] MEDS: HumaLOG 300 UNITS/3 ML VIAL SC PRN ×3 (05:30→18:12)
[2020-02-07 06:15] LABS: ALT (SGPT) 49 U/L (8-55); AST (SGOT) 23 U/L (5-34); Albumin 3.1 g/dL (3.4-4.8); Alkaline Phosphatase 60 U/L (40-110); Bilirubin, Direct 0.2 mg/dL (0.1-0.3); Bilirubin, Total 0.4 mg/dL (0.2-1.2); Protein, Total 5.8 g/dL (5.8-8.1)
[2020-02-07] MEDS: Finasteride 5 MG TAB PO SCH (07:38)
[2020-02-07] MEDS: Enoxaparin Sodium 40 MG/0.4 ML SYRINGE SC SCH (07:38)
[2020-02-07] MEDS: Doxycycline 100 MG CAP PO SCH ×2 (07:38→21:08)
[2020-02-07] MEDS: Escitalopram Oxalate 10 mg Tablet PO SCH (07:38)
[2020-02-07] MEDS: Aspirin 81 mg Enteric Coated Tablet PO SCH (07:38)
[2020-02-07] MEDS: guaiFENesin ER 600 MG TAB PO SCH ×2 (07:38→21:08)
[2020-02-07] MEDS: Famotidine/PF 20 mg/2ml Vial SLOW IVP SCH ×2 (07:39→21:08)
[2020-02-07] MEDS: Dexamethasone 6 MG in Sodium Chloride 0.9% 50 ML IVPB SCH (12:09)
[2020-02-07] MEDS: CEFTRIAXONE ROCEPHIN IVPB SCH (13:47)
[2020-02-07] MEDS ORDERED: cefTRIAXone\\ROCEPHIN 1 GM in Sodium Chloride 0.9% 100 ML IVPB ONE (13:47)
[2020-02-07] MEDS: SODIUM CHLORIDE 0.9% IVPB SCH (13:47)
--- NOTE | 2020-02-07 15:58 | PDOC.HOSPP ---
- Subjective Encounter Date: 02/07/20 Subjective: The patient is breathing better today. He saturating well on 1 L. - Objective Vital Signs & Weight: Vital Signs (12 hours) Temp Pulse Resp BP Pulse Ox 02/07/20 12:25 97.5 F L 62 20 118/65 96 02/07/20 08:00 97 02/07/20 07:56 97.7 F 59 L 20 145/75 H 97 Weight Weight 231 lb 12.8 oz I&O: 02/06/20 02/07/20 02/08/20 06:59 06:59 06:59 Intake Total 1020 1310 Balance 1020 1310 Result Diagrams: 02/06/20 14:31 02/05/20 09:49 Additional Labs: Accuchecks 02/07/20 02/07/20 02/06/20 12:15 05:19 21:45 POC Glucose 181 H 214 H 386 H Hospitalist ROS - Medication Medications: Active Medications Generic Name Dose Route Start Last Admin Trade Name Freq PRN Reason Stop Dose Admin Aspirin 81 mg 02/05/20 09:00 02/07/20 07:38 Aspirin 81 Mg Enteric Coated Tablet PO 81 mg DAILY ABHILASH Administration Atorvastatin Calcium 80 mg 02/04/20 21:00 02/06/20 21:32 Atorvastatin Calcium 40 Mg Tab PO 80 mg HS ABHILASH Administration Diazepam 5 mg 02/04/20 19:44 02/06/20 21:32 Diazepam 5 Mg Tab PO 5 mg TID PRN Administration Anxiety Doxycycline Hyclate 100 mg 02/05/20 21:00 02/07/20 07:38 Doxycycline 100 Mg Cap PO 100 mg BID ABHILASH Administration Enoxaparin Sodium 40 mg 02/04/20 09:00 02/07/20 07:38 Enoxaparin Sodium 40 Mg/0.4 Ml Syringe SC 40 mg 09 ABHILASH Administration Escitalopram Oxalate 10 mg 02/06/20 09:00 02/07/20 07:38 Escitalopram Oxalate 10 Mg Tablet PO 10 mg DAILY ABHILASH Administration Famotidine 20 mg 02/04/20 09:00 02/07/20 07:39 Famotidine/Pf 20 Mg/2ml Vial SLOW IVP 20 mg Q12HR ABHILASH Administration Finasteride 5 mg 02/06/20 09:00 02/07/20 07:38 Finasteride 5 Mg Tab PO 5 mg DAILY ABHILASH Administration Guaifenesin 600 mg 02/05/20 21:00 02/07/20 07:38 Guaifenesin Er 600 Mg Tab PO 600 mg Q12HR ABHILASH Administration Dexamethasone 6 mg/ Sodium 50.6 mls @ 100 mls/hr 02/04/20 12:00 02/07/20 12:09 Chloride IVPB 50.6 mls 1200 ABHILASH Administration Remdesivir 100 mg/ Sodium 250 mls @ 250 mls/hr 02/06/20 16:00 02/06/20 15:02 Chloride IV 02/09/20 16:59 250 mls 1600 ABHILASH Administration Ceftriaxone Sodium 1,000 gm/ 100 mls @ 0 mls/hr 02/06/20 14:00 02/07/20 13:47 Sodium Chloride IVPB 100 mls Q24HR ABHILASH Administration Insulin Human Lispro 0 units 02/04/20 00:17 02/07/20 13:47 Humalog 300 Units/3 Ml Vial SC 2 units .MODERATE SLIDING SC PRN Administration Moderate Correctional Scale Pantoprazole Sodium 40 mg 02/06/20 09:00 02/07/20 07:38 Pantoprazole 40 Mg Tab PO 40 mg DAILY ABHILASH Administration - Exam General Appearance: awake alert ENT: normocephalic atraumatic Neck: supple, no JVD Heart: RRR Respiratory: normal chest expansion, no tachypnea Gastrointestinal: soft Extremities: no cyanosis, no clubbing Hosp A/P (1) Acute respiratory failure with hypoxemia Code(s): J96.01 - ACUTE RESPIRATORY FAILURE WITH HYPOXIA Status: Acute (2) DM type 2 (diabetes mellitus, type 2) Status: Acute Qualifiers: Diabetes mellitus mcc insulin use: without terminal press operator use Diabetes mellitus complication status: with kidney complications Diabetes mellitus complication detail: with other kidney complication Qualified Code(s): E11.29 - Type 2 diabetes mellitus with other diabetic kidney complication (3) Pneumonia due to COVID-19 virus Code(s): U07.1 - COVID-19; J12.89 - OTHER VIRAL PNEUMONIA Status: Acute (4) Coronary artery disease Code(s): I25.10 - ATHSCL HEART DISEASE OF [place] CORONARY ARTERY W/O ANG PCTRS Status: Chronic Qualifiers: Coronary Disease-Associated Artery/Lesion type: [place] artery [place] vs. transplanted heart: [place] heart Associated angina: without angina Qualified Code(s): I25.10 - Atherosclerotic heart disease of [place] coronary artery without angina pectoris (5) Hypertension Code(s): I10 - ESSENTIAL (PRIMARY) HYPERTENSION Status: Chronic - Plan 79-year-old male with history of diabetes mellitus and hypertension who is admitted to the hospital for acute respiratory failure with hypoxia due to COVID-19. The patient is requiring less oxygen today. We will continue dexamethasone and remdesivir. Trial on room air will be attempted today and if the patient remained stable we will plan to discharge him home tomorrow.
[2020-02-07] MEDS: REMDESIVIR (EUA) 100 MG in Sodium Chloride 0.9% 250 ML 230 ML IV SCH (16:01)
[2020-02-07] MEDS: Diazepam 5 MG TAB PO PRN (21:08)
[2020-02-07] MEDS: Atorvastatin Calcium 40 MG TAB PO SCH (21:08)
[2020-02-08 05:53] LABS: ALT (SGPT) 67 U/L (8-55); AST (SGOT) 29 U/L (5-34); Albumin 3.1 g/dL (3.4-4.8); Alkaline Phosphatase 64 U/L (40-110); Bilirubin, Direct 0.1 mg/dL (0.1-0.3); Bilirubin, Total 0.3 mg/dL (0.2-1.2); Protein, Total 5.8 g/dL (5.8-8.1)
[2020-02-08] MEDS: HumaLOG 300 UNITS/3 ML VIAL SC PRN ×3 (06:35→16:26)
[2020-02-08] MEDS: Enoxaparin Sodium 40 MG/0.4 ML SYRINGE SC SCH (07:45)
[2020-02-08] MEDS: Doxycycline 100 MG CAP PO SCH (07:45)
[2020-02-08] MEDS: Aspirin 81 mg Enteric Coated Tablet PO SCH (07:45)
[2020-02-08] MEDS: Finasteride 5 MG TAB PO SCH (07:45)
[2020-02-08] MEDS: Escitalopram Oxalate 10 mg Tablet PO SCH (07:45)
[2020-02-08] MEDS: guaiFENesin ER 600 MG TAB PO SCH (07:46)
[2020-02-08] MEDS: Famotidine/PF 20 mg/2ml Vial SLOW IVP SCH (07:46)
[2020-02-08] MEDS: Dexamethasone 6 MG in Sodium Chloride 0.9% 50 ML IVPB SCH (11:42)
[2020-02-08] MEDS ORDERED: cefTRIAXone\\ROCEPHIN 1 GM in Sodium Chloride 0.9% 100 ML IVPB ONE (13:56)
[2020-02-08] MEDS: SODIUM CHLORIDE 0.9% IVPB SCH (13:56)
[2020-02-08] MEDS: CEFTRIAXONE ROCEPHIN IVPB SCH (13:56)
--- NOTE | 2020-02-08 14:23 | PDOC.DS.DS ---
Provider - Provider Date of Admission: 02/03/20 23:50 Date of Discharge: 02/08/20 Admitting Provider: Rolando Jason MD Primary Care Physician: ABHI COLLINS MD Course - Hospital Course Hospital Course: The patient is an 79-year-old male with past medical history of COPD, CVA, hyperlipidemia, diabetes mellitus, hypertension, skin cancer, and coronary artery disease who was admitted to the hospital for acute respiratory failure with hypoxia due to COVID-19 infection. The patient was managed with dexamethasone and remdesivir and his condition improved over 4 days of hospitalization. He did not receive the last dose of remdesivir as he was saturating well on room air for 2 consecutive days and was asymptomatic. Resuscitation Status: 02/03/20 23:48 Resuscitation Status Routine Resuscitation Status: FULL: Full Resuscitation - Labs Lab Results: 02/06/20 14:31 02/05/20 09:49 Abnormal Lab Results - Last 48 hrs 02/06/20 14:31: WBC 12.0 H, RBC 3.82 L, Hgb 11.8 L, Hct 34.2 L, RDW 11.4 L, MPV 7.2 L 02/07/20 05:29: Albumin 3.1 L 02/08/20 05:08: ALT 67 H, Albumin 3.1 L Microbiology - Entire Visit 02/03/20 18:48 Venous blood - Left Arm Blood Culture - Preliminary NO GROWTH AT 48 HOURS 02/03/20 18:56 Venous blood - Right Hand Blood Culture - Preliminary NO GROWTH AT 48 HOURS - Physical Exam Vitals: Vital Signs (12 hours) Temp Pulse Resp BP Pulse Ox 02/08/20 11:59 97.6 F 86 18 114/62 98 02/08/20 08:02 98 F 60 20 122/61 97 02/08/20 08:00 98.3 F 63 18 148/70 H 92 L 02/08/20 06:00 97.5 F L 54 L 18 128/67 98 Weight Weight 231 lb 12.8 oz Physical Exam: The patient was seen and examined on the day of discharge. Problem - Problem (1) Acute respiratory failure with hypoxemia Code(s): J96.01 - ACUTE RESPIRATORY FAILURE WITH HYPOXIA Status: Acute (2) DM type 2 (diabetes mellitus, type 2) Status: Acute Qualifiers: Diabetes mellitus nursing home insulin use: without food service attendant use Diabetes mellitus complication status: with kidney complications Diabetes mellitus complication detail: with other kidney complication Qualified Code(s): E11.29 - Type 2 diabetes mellitus with other diabetic kidney complication (3) Pneumonia due to COVID-19 virus Code(s): U07.1 - COVID-19; J12.89 - OTHER VIRAL PNEUMONIA Status: Acute (4) Coronary artery disease Code(s): I25.10 - ATHSCL HEART DISEASE OF [place] CORONARY ARTERY W/O ANG PCTRS Status: Chronic Qualifiers: Coronary Disease-Associated Artery/Lesion type: [place] artery [place] vs. transplanted heart: [place] heart Associated angina: without angina Qualified Code(s): I25.10 - Atherosclerotic heart disease of [place] coronary artery without angina pectoris (5) Hypertension Code(s): I10 - ESSENTIAL (PRIMARY) HYPERTENSION Status: Chronic Plan - Discharge Medications Home Medications: Medication Instructions Recorded Confirmed Type Aspirin [Ecotrin Low Strength] 81 mg PO DAILY 10/11/15 02/04/20 History Diazepam [Valium] 5 mg PO TID PRN 10/11/15 02/04/20 History Lisinopril/Hydrochlorothiazide 1 tablet PO DAILY 10/11/15 02/04/20 History [Lisinopril-Hctz 20-25 mg Tab] Multivitamin [Multivitamins] 1 cap PO DAILY 10/11/15 02/04/20 History Omeprazole Magnesium [Prilosec OTC] 40 mg PO DAILY 10/11/15 02/04/20 History Atorvastatin Calcium 80 mg PO HS 12/15/19 02/04/20 History Escitalopram Oxalate 10 mg PO DAILY 12/15/19 02/04/20 History Finasteride 5 mg PO DAILY 12/15/19 02/04/20 History hydrALAZINE HCl [Hydralazine HCl] 5 mg PO DAILY 12/15/19 02/04/20 History Allergies: No Known Allergies Allergy (Verified 05/19/19 09:45) - Follow up Plan Referrals: ABHI COLLINS [Primary Care Provider] - Disposition: HOME Quality - Care Measures CORE MEASURES:: N/A
[2020-02-08 16:04] VITALS: BP 122/70; TEMP 97.8
[2020-02-08] MEDS: REMDESIVIR (EUA) 100 MG in Sodium Chloride 0.9% 250 ML 230 ML IV SCH (16:26)
== END 2020-02-08 18:19 | disposition home or self-care (01) | DRG 177 ==
LOC: ERS 17:50 → ERHOLD 23:50 → T4-B 02-04 06:22
PROVIDERS: ADMIT Internal Medicine; ATTEND Internal Medicine
PROC: 8E0ZXY6 Isolation (ICD-10-PCS; principal; 2020-02-03)
PROC: XW033E5 Introduction of Remdesivir Anti-infective into Peripheral Vein, Percutaneous Approach, New Technology Group 5 (ICD-10-PCS; 2020-02-05)
DX: U07.1 COVID-19 (principal); J96.01 Acute respiratory failure with hypoxia; J12.89 Other viral pneumonia; J44.0 Chronic obstructive pulmonary disease with (acute) lower respiratory infection; J44.1 Chronic obstructive pulmonary disease with (acute) exacerbation; N17.9 Acute kidney failure, unspecified; Z51.5 Encounter for palliative care; Z23 Encounter for immunization; E11.29 Type 2 diabetes mellitus with other diabetic kidney complication; I25.10 Atherosclerotic heart disease of native coronary artery without angina pectoris; K21.9 Gastro-esophageal reflux disease without esophagitis; I10 Essential (primary) hypertension; E78.5 Hyperlipidemia, unspecified; F41.9 Anxiety disorder, unspecified; E11.40 Type 2 diabetes mellitus with diabetic neuropathy, unspecified; E11.65 Type 2 diabetes mellitus with hyperglycemia; N40.0 Benign prostatic hyperplasia without lower urinary tract symptoms; F32.9 Major depressive disorder, single episode, unspecified; Z79.82 Long term (current) use of aspirin; Z79.899 Other long term (current) drug therapy; Z87.891 Personal history of nicotine dependence; I69.398 Other sequelae of cerebral infarction; Z85.828 Personal history of other malignant neoplasm of skin; Z95.5 Presence of coronary angioplasty implant and graft
CPT/HCPCS: 36415; 36416; 71045; 71275; 80048; 80053; 80076; 82728; 83605; 83880; 84484; 85025; 85027; 85379; 86140; 87040; 93005; 94760; 96372; J0696; J1100; J1650; J2060; J3490; J7050; Q9967; S0028

== ENCOUNTER 2021-12-08 05:38 | Observation (INO) | payer MEDICARE, OTHER ==
[2021-12-08] MEDS ORDERED: Mag-Al 1200 mg/1200 mg/30 ML UDCUP ONE (05:59)
[2021-12-08] MEDS ORDERED: Lidocaine Viscous Sol 2% 15 ml UD Cup ONE (05:59)
[2021-12-08 06:32] LABS: #Eosinphils 0.2 thou/uL (0.0-0.7); #Lymphocytes 1.5 thou/uL (1.20-3.40); #Monocytes 0.6 thou/uL (0.11-0.59); #Neutrophils 7.1 thou/uL (1.40-6.50); %Basophils 0.4 % (0.0-1.0); %Eosinophils 1.6 % (0.0-10.0); %Lymphocytes 16.1 % (21.0-51.0); %Monocytes 6.7 % (0.0-10.0); %Neutrophils 75.2 % (42.0-75.0); Hemoglobin 13.4 g/dL (14.0-18.0); Mean Corpuscular HGB CONC 33.7 g/dL (32.0-36.0); Mean Corpuscular Hemoglobin 30.5 pg (27.0-31.0); Mean Corpuscular Volume 90.4 fL (78.0-98.0); Mean Platelet Volume 7.3 fL (7.4-10.4); Platelet Count 204 thou/uL (130-400); White Blood Cell (WBC) Count 9.5 thou/uL (4.8-10.8)
[2021-12-08 06:51] LABS: ALT (SGPT) 20 U/L (8-55); AST (SGOT) 17 U/L (5-34); Albumin 4.2 g/dL (3.4-4.8); Alkaline Phosphatase 98 U/L (40-110); Anion Gap 15 mmol/L (10-20); BUN (Urea Nitrogen) 26 mg/dL (8.4-25.7); Bilirubin, Total 0.5 mg/dL (0.2-1.2); Calc. Creatinine Clearance 0 mL/min (70-130); Calcium 9.2 mg/dL (7.8-10.44); Carbon Dioxide 23 mmol/L (23-31); Chloride 105 mmol/L (98-107); Estimated GFR 38; Globulin 2.6 g/dL (2.4-3.5); Glucose 316 mg/dL (83-110); Potassium 4.1 mmol/L (3.5-5.1); Protein, Total 6.8 g/dL (5.8-8.1); Sodium 139 mmol/L (136-145)
[2021-12-08] MEDS ORDERED: Nitroglycerin 0.4 MG TAB (25 Tab Bottle) SL PRN (11:18)
[2021-12-08] MEDS ORDERED: Ondansetron PF 4 MG/2 ML Vial IVP PRN (11:18)
[2021-12-08] MEDS ORDERED: Aspirin Chewable 81 MG TAB PO SCH (11:30)
[2021-12-08] MEDS ORDERED: Enoxaparin Sodium 40 MG/0.4 ML SYRINGE SC SCH (11:30)
[2021-12-08] MEDS ORDERED: HumaLOG 300 UNITS/3 ML VIAL SC PRN ×2 (11:40)
[2021-12-08] MEDS ORDERED: Dextrose 5% in Water 1,000 ML IV PRN (11:40)
[2021-12-08] MEDS ORDERED: Dextrose 50% Abboject 50 ML SYRINGE SLOW IVP PRN (11:40)
[2021-12-08] MEDS ORDERED: Pantoprazole 40 MG VIAL IVP SCH (12:00)
[2021-12-08 12:14] LABS: Troponin I 0.015 ng/mL (< 0.028)
[2021-12-08 12:34] LABS: Hemoglobin A1c 9.3 % (4.0-6.0)
[2021-12-08 12:40] LABS: Cardiac Risk 4.8 (Less than 4.5)
[2021-12-08] MEDS ORDERED: Pantoprazole 40 MG VIAL ONE (16:03)
[2021-12-08] MEDS ORDERED: Aspirin Chewable 81 MG TAB ONE (16:04)
[2021-12-08] MEDS ORDERED: Enoxaparin Sodium 40 MG/0.4 ML SYRINGE ONE (16:04)
[2021-12-08] MEDS: Sodium Chloride 0.9% 1,000 ML IV SCH (16:07)
[2021-12-08 19:28] LABS: Troponin I 0.029 ng/mL (< 0.028)
[2021-12-08 19:43] VITALS: BMI 36.2
[2021-12-08] MEDS ORDERED: Atorvastatin Calcium 40 MG TAB PO SCH (21:00)
[2021-12-09] MEDS ORDERED: Cepastat Lozenges 1 LOZ PO PRN (02:19)
[2021-12-09] MEDS ORDERED: Benzonatate 100 MG CAP PO PRN (02:19)
[2021-12-09] MEDS: Sodium Chloride 0.9% 1,000 ML IV SCH (02:29)
[2021-12-09 05:11] LABS: Anion Gap 12 mmol/L (10-20); BUN (Urea Nitrogen) 25 mg/dL (8.4-25.7); Calc. Creatinine Clearance 65 mL/min (70-130); Carbon Dioxide 23 mmol/L (23-31); Chloride 106 mmol/L (98-107); Potassium 4.2 mmol/L (3.5-5.1); Sodium 137 mmol/L (136-145)
[2021-12-09 05:12] LABS: Calcium 8.9 mg/dL (7.8-10.44); Estimated GFR 54; Glucose 207 mg/dL (83-110)
[2021-12-09] MEDS ORDERED: Pantoprazole 40 MG VIAL IVP SCH (09:00)
[2021-12-09] MEDS ORDERED: Enoxaparin Sodium 40 MG/0.4 ML SYRINGE SC SCH (09:00)
[2021-12-09] MEDS ORDERED: Aspirin Chewable 81 MG TAB PO SCH (09:00)
[2021-12-09 11:59] VITALS: BP 172/77; TEMP 97.8
[2021-12-10] MEDS ORDERED: Multivit, Therapeutic 1 TAB PO SCH (09:00)
[2021-12-10] MEDS ORDERED: Escitalopram Oxalate 10 mg Tablet PO SCH (09:00)
[2021-12-10] MEDS ORDERED: Non-Formulary Item 1 EACH (Multivitamin [Multivitamins] 1 CAP Capsule) PO SCH (09:00)
[2021-12-10] MEDS ORDERED: Finasteride 5 MG TAB PO SCH (09:00)
[2021-12-11] MEDS ORDERED: FLU VACC QS2022-23(65YR UP)/PF 240 MCG/0.7 ML SYRINGE IM ONE (09:00)
== END 2021-12-09 15:00 | disposition left against medical advice (07) ==
LOC: ERS 05:38 → ERHOLD 10:58 → 2SW 18:08
PROVIDERS: ADMIT Internal Medicine; ATTEND Internal Medicine
DX: R07.2 Precordial pain (principal); N17.9 Acute kidney failure, unspecified; E11.29 Type 2 diabetes mellitus with other diabetic kidney complication; I10 Essential (primary) hypertension; K21.9 Gastro-esophageal reflux disease without esophagitis; E11.65 Type 2 diabetes mellitus with hyperglycemia; J44.9 Chronic obstructive pulmonary disease, unspecified; I25.10 Atherosclerotic heart disease of native coronary artery without angina pectoris; I69.354 Hemiplegia and hemiparesis following cerebral infarction affecting left non-dominant side; K80.20 Calculus of gallbladder without cholecystitis without obstruction; K76.0 Fatty (change of) liver, not elsewhere classified; E78.5 Hyperlipidemia, unspecified; E11.40 Type 2 diabetes mellitus with diabetic neuropathy, unspecified; E66.9 Obesity, unspecified; Z68.36 Body mass index [BMI] 36.0-36.9, adult; Z53.29 Procedure and treatment not carried out because of patient's decision for other reasons; Z87.891 Personal history of nicotine dependence; Z79.84 Long term (current) use of oral hypoglycemic drugs; Z79.899 Other long term (current) drug therapy; Z20.822 Contact with and (suspected) exposure to COVID-19
CPT/HCPCS: 71045; 76705; 80048; 80053; 80061; 82962 ×2; 83036; 83690; 84484 ×2; 85025; 93005; 94760; 96372 ×2; 96374; 96376; 99285; G0378 ×3; U0003; U0005; 36415; 36416; C9113; J1650; J7050

== ENCOUNTER 2022-04-13 14:28 | Inpatient (IN) | payer OTHER ==
[2022-04-13] MEDS ORDERED: Ondansetron PF 4 MG/2 ML Vial ONE (14:33)
[2022-04-13] MEDS ORDERED: Morphine 2 MG/ML VIAL ONE (14:45)
[2022-04-13] MEDS ORDERED: Cefepime 2 GM VIAL ONE (15:07)
[2022-04-13 15:31] LABS: #Lymphocytes 0.4 thou/uL (1.20-3.40); #Monocytes 0.1 thou/uL (0.11-0.59); #Neutrophils 4.7 thou/uL (1.40-6.50); %Basophils 0.2 % (0.0-1.0); %Eosinophils 0.4 % (0.0-10.0); %Monocytes 1.6 % (0.0-10.0); %Neutrophils 89.8 % (42.0-75.0); Hemoglobin 13.5 g/dL (14.0-18.0); Mean Corpuscular HGB CONC 34.2 g/dL (32.0-36.0); Mean Corpuscular Hemoglobin 31.3 pg (27.0-31.0); Mean Corpuscular Volume 91.5 fl (78.0-98.0); Mean Platelet Volume 7.5 fL (7.4-10.4); Platelet Count 142 10x3/uL (130-400); RBC Distribution Width 11.8 % (11.5-14.5); Red Blood Cell (RBC) Count 4.32 mill/uL (4.70-6.10); White Blood Cell (WBC) Count 5.3 10x3/uL (4.8-10.8)
[2022-04-13 15:38] LABS: ALT (SGPT) 112 U/L (8-55); AST (SGOT) 221 U/L (5-34); Albumin 3.6 g/dL (3.4-4.8); Alkaline Phosphatase 169 U/L (40-110); Anion Gap 16 mmol/L (10-20); BUN (Urea Nitrogen) 26 mg/dL (8.4-25.7); Bilirubin, Total 2.4 mg/dL (0.2-1.2); Calc. Creatinine Clearance 0 mL/min (70-130); Calcium 8.9 mg/dL (7.8-10.44); Carbon Dioxide 22 mmol/L (23-31); Chloride 100 mmol/L (98-107); Estimated GFR 37; Globulin 2.7 g/dL (2.4-3.5); Glucose 344 mg/dL (83-110); Lipase 34 U/L (8-78); Magnesium 1.1 mg/dL (1.6-2.6); Potassium 3.9 mmol/L (3.5-5.1); Protein, Total 6.3 g/dL (5.8-8.1); Sodium 134 mmol/L (136-145)
[2022-04-13 16:24] LABS: CKMB 1.8 ng/mL (0-6.6)
[2022-04-13] MEDS ORDERED: Acetaminophen 500 MG TAB ONE (16:49)
[2022-04-13] MEDS ORDERED: VANCOMYCIN 2 GRAM/500 ML BAG 2 GM in Premix Bag 1 BAG IVPB SCH (17:00)
[2022-04-13 17:16] LABS: Bilirubin Negative (Negative); Blood, Urine 3+ (Negative); Clarity Turbid (Clear); Glucose, Urine (Dipstick) 300 mg/dL (Negative); Ketone, Urine Negative (Negative); Leukocyte Negative Leu/uL (Negative); Nitrite Negative (Negative); Protein, Urine (Dipstick) 50 mg/dL (Neg-Trace); Specific Gravity, Urine 1.027 (1.002-1.036); Squamous Epithelial 0-3 HPF (0-3); Urobilinogen Normal mg/dL (Less than 2); WBC/HPF 0-3 HPF (0-3); pH, Urine 5.5 (5.0-9.0)
[2022-04-13 17:24] LABS: Bacteria/HPF 1+ HPF (None Seen)
[2022-04-13] MEDS ORDERED: Ipratropium/Albuterol 3 ML NEB ONE (19:48)
[2022-04-13] MEDS ORDERED: Magnesium 2 GM/50 ML BAG (IN WATER) ONE (19:57)
[2022-04-13 20:05] LABS: CKMB 4.5 ng/mL (0-6.6)
[2022-04-13] MEDS ORDERED: NOREPINEPHRINE 8 MG/250 ML-D5W 250 ML ONE (20:12)
[2022-04-13 20:25] LABS: Actual Bicarbonate (HCO3v) 23 mEq/L (22-28); Base Excess -1.9 mEq/L (-2.0 to +3.0); Calcium, Ionized (venous) 1.06 mmol/L (1.16-1.32); Chloride (VBG) 101 mmol/L (98-106); Hemoglobin (Hb) 12.5 g/dL (12.6-17.4); Potassium (VBG) 3.89 mmol/L (3.70-5.30); pH (venous) 7.37 (7.32-7.43)
[2022-04-13] MEDS ORDERED: Ondansetron ODT 4 MG TAB PO PRN (20:38)
[2022-04-13] MEDS ORDERED: Acetaminophen 650 MG Suppository PR PRN ×2 (20:38→22:16)
[2022-04-13] MEDS ORDERED: Acetaminophen 325 MG TAB PO PRN (20:38)
[2022-04-13] MEDS ORDERED: Ondansetron PF 4 MG/2 ML Vial IVP PRN (20:38)
[2022-04-13] MEDS ORDERED: NOREPINEPHRINE 8 MG/250 ML-D5W 250 ML IVPB SCH (20:45)
[2022-04-13] MEDS ORDERED: Ipratropium/Albuterol 3 ML NEB NEB PRN (21:29)
[2022-04-13] MEDS ORDERED: HumaLOG 300 UNITS/3 ML VIAL SC PRN (21:30)
[2022-04-13] MEDS ORDERED: Dextrose 5% in Water 1,000 ML IV PRN (21:30)
[2022-04-13] MEDS ORDERED: Dextrose 50% Abboject 50 ML SYRINGE SLOW IVP PRN (21:30)
[2022-04-13] MEDS ORDERED: Pantoprazole 40 MG VIAL IVP SCH (22:15)
[2022-04-13 23:09] VITALS: BMI 35.2
[2022-04-13 23:52] LABS: Troponin I 0.884 ng/mL (< 0.028)
[2022-04-14] MEDS ORDERED: HumaLOG 300 UNITS/3 ML VIAL SC PRN (00:14)
[2022-04-14] MEDS ORDERED: Cefepime 2 GM in Sodium Chloride 0.9% 100 ML IVPB SCH (03:00)
[2022-04-14] MEDS ORDERED: Insulin NPH Human Isophane 100 UNIT/ML (10 ML VIAL) SC SCH (04:15)
[2022-04-14] MEDS ORDERED: NPH, Human Insulin Isophane 300 UNIT/3 ML VIAL SC SCH (04:15)
[2022-04-14 04:29] LABS: #Lymphocytes 0.4 thou/uL (1.20-3.40); #Monocytes 0.5 thou/uL (0.11-0.59); #Neutrophils 9.4 thou/uL (1.40-6.50); %Eosinophils 0.1 % (0.0-10.0); %Lymphocytes 3.5 % (21.0-51.0); %Monocytes 4.9 % (0.0-10.0); %Neutrophils 91.6 % (42.0-75.0); Hemoglobin 11.5 g/dL (14.0-18.0); Mean Corpuscular HGB CONC 33.6 g/dL (32.0-36.0); Mean Corpuscular Volume 92.2 fl (78.0-98.0); Mean Platelet Volume 7.7 fL (7.4-10.4); Platelet Count 129 10x3/uL (130-400); RBC Distribution Width 11.7 % (11.5-14.5); Red Blood Cell (RBC) Count 3.71 mill/uL (4.70-6.10); White Blood Cell (WBC) Count 10.2 10x3/uL (4.8-10.8)
[2022-04-14 04:49] LABS: Anion Gap 13 mmol/L (10-20); BUN (Urea Nitrogen) 28 mg/dL (8.4-25.7); Calc. Creatinine Clearance 42 mL/min (70-130); Calcium 8.3 mg/dL (7.8-10.44); Carbon Dioxide 22 mmol/L (23-31); Chloride 103 mmol/L (98-107); Estimated GFR 32; Potassium 4.2 mmol/L (3.5-5.1); Sodium 134 mmol/L (136-145)
[2022-04-14 04:52] LABS: ALT (SGPT) 161 U/L (8-55); AST (SGOT) 202 U/L (5-34); Albumin 3.1 g/dL (3.4-4.8); Alkaline Phosphatase 143 U/L (40-110); Bilirubin, Direct 3.1 mg/dL (0.1-0.3); Magnesium 1.8 mg/dL (1.6-2.6); Protein, Total 5.6 g/dL (5.8-8.1)
[2022-04-14 04:57] LABS: Glucose 536 mg/dL (83-110)
[2022-04-14] MEDS ORDERED: VANCOMYCIN 1.25 GM/250 ML BAG IVPB SCH (05:00)
[2022-04-14] MEDS: metroNIDAZOLE 500 MG in Premix Bag 1 BAG IVPB SCH ×4 (06:19→22:38)
[2022-04-14] MEDS: HumaLOG 300 UNITS/3 ML VIAL SC PRN ×3 (06:20→12:10)
[2022-04-14] MEDS: Sodium Chloride 0.9% 1,000 ML IV SCH ×4 (07:21→19:54)
[2022-04-14] MEDS: Pantoprazole 40 MG VIAL IVP SCH (09:03)
[2022-04-14] MEDS: Insulin NPH Human Isophane 100 UNIT/ML (10 ML VIAL) SC SCH ×2 (09:04→19:54)
[2022-04-14 10:02] LABS: SARS-CoV-2 NAA Rapid Test DETECTED (NotDetected)
[2022-04-14] MEDS: Cefepime 1 GM in Sodium Chloride 0.9% 100 ML IVPB SCH (14:37)
[2022-04-14] MEDS: VANCOMYCIN 1.25 GM/250 ML BAG 1.25 GM in Premix Bag 1 BAG IVPB SCH (17:50)
[2022-04-15] MEDS: Cefepime 1 GM in Sodium Chloride 0.9% 100 ML IVPB SCH ×2 (04:00→14:36)
[2022-04-15] MEDS: Sodium Chloride 0.9% 1,000 ML IV SCH ×3 (04:00→22:27)
[2022-04-15 04:07] LABS: #Eosinphils 0.1 thou/uL (0.0-0.7); #Lymphocytes 0.5 thou/uL (1.20-3.40); #Monocytes 0.3 thou/uL (0.11-0.59); #Neutrophils 5.4 thou/uL (1.40-6.50); %Basophils 0.6 % (0.0-1.0); %Eosinophils 1.5 % (0.0-10.0); %Lymphocytes 7.7 % (21.0-51.0); %Monocytes 5.1 % (0.0-10.0); %Neutrophils 85.1 % (42.0-75.0); Hemoglobin 10.8 g/dL (14.0-18.0); Mean Corpuscular HGB CONC 34.1 g/dL (32.0-36.0); Mean Corpuscular Hemoglobin 31.5 pg (27.0-31.0); Mean Corpuscular Volume 92.3 fl (78.0-98.0); Mean Platelet Volume 7.4 fL (7.4-10.4); Platelet Count 127 10x3/uL (130-400); RBC Distribution Width 11.6 % (11.5-14.5); Red Blood Cell (RBC) Count 3.43 mill/uL (4.70-6.10); White Blood Cell (WBC) Count 6.4 10x3/uL (4.8-10.8)
[2022-04-15 04:10] LABS: Hemoglobin A1c 9.9 % (4.0-6.0)
[2022-04-15 04:27] LABS: ALT (SGPT) 132 U/L (8-55); AST (SGOT) 162 U/L (5-34); Albumin 2.9 g/dL (3.4-4.8); Alkaline Phosphatase 122 U/L (40-110); Anion Gap 11 mmol/L (10-20); BUN (Urea Nitrogen) 28 mg/dL (8.4-25.7); Bilirubin, Total 3.2 mg/dL (0.2-1.2); Calc. Creatinine Clearance 40 mL/min (70-130); Calcium 8.3 mg/dL (7.8-10.44); Carbon Dioxide 23 mmol/L (23-31); Chloride 108 mmol/L (98-107); Estimated GFR 30; Globulin 2.4 g/dL (2.4-3.5); Glucose 106 mg/dL (83-110); Potassium 3.8 mmol/L (3.5-5.1); Protein, Total 5.3 g/dL (5.8-8.1); Sodium 138 mmol/L (136-145)
[2022-04-15 04:36] LABS: Critical Call Chem Troponin I RESULT DECREASING; Troponin I 0.507 ng/mL (< 0.028)
[2022-04-15 04:45] LABS: HBCM Index 0.09 S/CO (0-0.79); HBSAg Index 0.34 S/CO (0-0.99); Hep A IgM AB Non-Reactive (NonReactive); Hep A IgM S/CO 0.19 S/CO (0-0.79); Hep B Surf Ag Non-Reactive S/CO (NonReactive); Hep C IgG Ab Non-Reactive (NonReactive); Hep C Index 0.05 S/CO (0-0.79); Hepatitis B Core IgM Abs Non-Reactive (NonReactive)
[2022-04-15] MEDS: metroNIDAZOLE 500 MG in Premix Bag 1 BAG IVPB SCH ×3 (05:25→23:14)
[2022-04-15] MEDS: Pantoprazole 40 MG VIAL IVP SCH (09:05)
[2022-04-15] MEDS: Insulin NPH Human Isophane 100 UNIT/ML (10 ML VIAL) SC SCH ×2 (09:09→23:13)
[2022-04-15 12:47] LABS: Magnesium 1.9 mg/dL (1.6-2.6); Phosphorus 2.5 mg/dL (2.3-4.7)
[2022-04-15] MEDS: VANCOMYCIN 1.25 GM/250 ML BAG 1.25 GM in Premix Bag 1 BAG IVPB SCH ×2 (17:23→18:10)
[2022-04-15 17:33] LABS: Vancomycin, Trough 12.9 ug/mL
[2022-04-15] MEDS: Vancomycin 1.5 GRAM/300 ML BAG 1.5 GM in Premix Bag 1 BAG IVPB SCH (18:11)
[2022-04-15 18:27] LABS: ANA Symphony (Qualitative) Negative (Negative); ANA Symphony (Quantitative) 0.4 Ratio (< 0.7 Negative); EliA Vaculitis New Method **** NEW METHOD ****; Mitochondrial Ab 1.1 U/mL (<4 Negative)
[2022-04-15] MEDS ORDERED: Digoxin 0.5 MG/2 ML AMP SLOW IVP SCH (19:00)
[2022-04-15] MEDS ORDERED: Metoprolol Tartrate 5 MG/5 ML VIAL IVP PRN (19:01)
[2022-04-15] MEDS: Acetaminophen 325 MG TAB PO PRN (23:13)
[2022-04-16] MEDS: Cefepime 1 GM in Sodium Chloride 0.9% 100 ML IVPB SCH ×2 (01:32→14:34)
[2022-04-16] MEDS: Sodium Chloride 0.9% 1,000 ML IV SCH ×3 (01:33→23:18)
[2022-04-16 05:54] LABS: #Eosinphils 0.3 thou/uL (0.0-0.7); #Lymphocytes 0.5 thou/uL (1.20-3.40); #Monocytes 0.4 thou/uL (0.11-0.59); #Neutrophils 5.2 thou/uL (1.40-6.50); %Basophils 0.1 % (0.0-1.0); %Lymphocytes 8.3 % (21.0-51.0); %Neutrophils 81.6 % (42.0-75.0); Hemoglobin 11.7 g/dL (14.0-18.0); Mean Corpuscular HGB CONC 34.5 g/dL (32.0-36.0); Mean Corpuscular Hemoglobin 31.7 pg (27.0-31.0); Mean Corpuscular Volume 91.8 fl (78.0-98.0); Mean Platelet Volume 7.5 fL (7.4-10.4); Platelet Count 126 10x3/uL (130-400); RBC Distribution Width 11.7 % (11.5-14.5); White Blood Cell (WBC) Count 6.4 10x3/uL (4.8-10.8)
[2022-04-16 06:10] LABS: ALT (SGPT) 106 U/L (8-55); AST (SGOT) 114 U/L (5-34); Alkaline Phosphatase 165 U/L (40-110); Anion Gap 11 mmol/L (10-20); BUN (Urea Nitrogen) 22 mg/dL (8.4-25.7); Bilirubin, Total 3.1 mg/dL (0.2-1.2); Calc. Creatinine Clearance 45 mL/min (70-130); Calcium 8.3 mg/dL (7.8-10.44); Carbon Dioxide 21 mmol/L (23-31); Chloride 110 mmol/L (98-107); Estimated GFR 35; Globulin 2.5 g/dL (2.4-3.5); Glucose 149 mg/dL (83-110); Potassium 3.9 mmol/L (3.5-5.1); Protein, Total 5.5 g/dL (5.8-8.1); Sodium 138 mmol/L (136-145)
[2022-04-16] MEDS: metroNIDAZOLE 500 MG in Premix Bag 1 BAG IVPB SCH ×2 (06:30→14:35)
[2022-04-16] MEDS ORDERED: FLU VACC QS2022-23(65YR UP)/PF 240 MCG/0.7 ML SYRINGE IM ONE (09:00)
[2022-04-16] MEDS: Metoprolol Tartrate 25 MG TAB PO SCH ×2 (09:47→23:15)
[2022-04-16] MEDS: Pantoprazole 40 MG VIAL IVP SCH (09:47)
[2022-04-16] MEDS: Insulin NPH Human Isophane 100 UNIT/ML (10 ML VIAL) SC SCH ×2 (09:48→23:15)
[2022-04-16] MEDS: Ipratropium/Albuterol Sulfate 4 GM AER IH PRN ×2 (16:21→23:06)
[2022-04-16] MEDS: Vancomycin 1.5 GRAM/300 ML BAG 1.5 GM in Premix Bag 1 BAG IVPB SCH (18:05)
[2022-04-17] MEDS: metroNIDAZOLE 500 MG in Premix Bag 1 BAG IVPB SCH ×4 (00:25→22:59)
[2022-04-17] MEDS: HumaLOG 300 UNITS/3 ML VIAL SC PRN ×2 (00:28→05:51)
[2022-04-17] MEDS: Cefepime 1 GM in Sodium Chloride 0.9% 100 ML IVPB SCH ×2 (03:28→14:44)
[2022-04-17 04:31] LABS: #Eosinphils 0.2 thou/uL (0.0-0.7); #Lymphocytes 0.5 thou/uL (1.20-3.40); #Monocytes 0.5 thou/uL (0.11-0.59); #Neutrophils 4.5 thou/uL (1.40-6.50); %Basophils 0.3 % (0.0-1.0); %Eosinophils 3.9 % (0.0-10.0); %Lymphocytes 8.7 % (21.0-51.0); %Monocytes 8.7 % (0.0-10.0); %Neutrophils 78.3 % (42.0-75.0); Hemoglobin 11.8 g/dL (14.0-18.0); Mean Corpuscular Hemoglobin 32.4 pg (27.0-31.0); Mean Corpuscular Volume 92.7 fl (78.0-98.0); Platelet Count 141 10x3/uL (130-400); RBC Distribution Width 11.8 % (11.5-14.5); Red Blood Cell (RBC) Count 3.64 mill/uL (4.70-6.10); White Blood Cell (WBC) Count 5.7 10x3/uL (4.8-10.8)
[2022-04-17] MEDS: Sodium Chloride 0.9% 1,000 ML IV SCH ×2 (05:50→13:19)
[2022-04-17] MEDS: Metoprolol Tartrate 25 MG TAB PO SCH ×2 (08:54→22:41)
[2022-04-17] MEDS: Insulin NPH Human Isophane 100 UNIT/ML (10 ML VIAL) SC SCH ×2 (08:54→22:40)
[2022-04-17] MEDS: Pantoprazole 40 MG VIAL IVP SCH (08:54)
[2022-04-17] MEDS: Ipratropium/Albuterol Sulfate 4 GM AER IH PRN ×2 (09:01→22:41)
[2022-04-17] MEDS: Acetaminophen 325 MG TAB PO PRN ×2 (12:11→23:51)
[2022-04-17 17:45] LABS: Vancomycin, Trough 21.9 ug/mL
[2022-04-17] MEDS: Vancomycin 1 GM in Premix Bag 1 BAG IVPB SCH (18:05)
[2022-04-17] MEDS: Mag-Al Plus 1200 MG/1200 MG/120 MG/30 ML UDCUP PO PRN ×2 (18:06→22:58)
[2022-04-17] MEDS: busPIRone HCl 5 MG TAB PO SCH (22:41)
[2022-04-18] MEDS: Cefepime 1 GM in Sodium Chloride 0.9% 100 ML IVPB SCH ×2 (03:55→16:27)
[2022-04-18] MEDS: busPIRone HCl 5 MG TAB PO SCH ×3 (06:29→22:42)
[2022-04-18] MEDS: metroNIDAZOLE 500 MG in Premix Bag 1 BAG IVPB SCH ×3 (06:29→22:55)
[2022-04-18 08:58] LABS: #Eosinphils 0.2 thou/uL (0.0-0.7); #Lymphocytes 0.8 thou/uL (1.20-3.40); #Monocytes 0.7 thou/uL (0.11-0.59); #Neutrophils 6.5 thou/uL (1.40-6.50); %Basophils 0.2 % (0.0-1.0); %Lymphocytes 9.3 % (21.0-51.0); %Monocytes 8.5 % (0.0-10.0); Hemoglobin 11.3 g/dL (14.0-18.0); Mean Corpuscular HGB CONC 33.9 g/dL (32.0-36.0); Mean Corpuscular Hemoglobin 31.1 pg (27.0-31.0); Mean Platelet Volume 7.2 fL (7.4-10.4); Platelet Count 170 10x3/uL (130-400); RBC Distribution Width 11.7 % (11.5-14.5); Red Blood Cell (RBC) Count 3.62 mill/uL (4.70-6.10); White Blood Cell (WBC) Count 8.2 10x3/uL (4.8-10.8)
[2022-04-18 09:19] LABS: ALT (SGPT) 115 U/L (8-55); AST (SGOT) 138 U/L (5-34); Alkaline Phosphatase 168 U/L (40-110); Anion Gap 12 mmol/L (10-20); BUN (Urea Nitrogen) 16 mg/dL (8.4-25.7); Bilirubin, Total 1.7 mg/dL (0.2-1.2); Calc. Creatinine Clearance 53 mL/min (70-130); Calcium 8.6 mg/dL (7.8-10.44); Carbon Dioxide 22 mmol/L (23-31); Chloride 107 mmol/L (98-107); Estimated GFR 38; Globulin 2.7 g/dL (2.4-3.5); Glucose 157 mg/dL (83-110); Potassium 3.6 mmol/L (3.5-5.1); Protein, Total 5.7 g/dL (5.8-8.1); Sodium 137 mmol/L (136-145)
[2022-04-18] MEDS: Pantoprazole 40 MG VIAL IVP SCH (09:20)
[2022-04-18] MEDS: Escitalopram Oxalate 10 mg Tablet PO SCH (09:20)
[2022-04-18] MEDS: Metoprolol Tartrate 25 MG TAB PO SCH ×2 (09:20→20:25)
[2022-04-18] MEDS: Multivit, Therapeutic 1 TAB PO SCH (09:20)
[2022-04-18] MEDS: Magnesium Oxide 250 MG TAB PO SCH (09:20)
[2022-04-18] MEDS: Aspirin 81 mg Enteric Coated Tablet PO SCH (09:20)
[2022-04-18] MEDS: Ascorbic Acid 500 mg Chewable Tablet PO SCH (09:20)
[2022-04-18] MEDS: Insulin NPH Human Isophane 100 UNIT/ML (10 ML VIAL) SC SCH ×2 (09:21→22:40)
[2022-04-18] MEDS: Ipratropium/Albuterol Sulfate 4 GM AER IH PRN (11:02)
[2022-04-18] MEDS: Vancomycin 1 GM in Premix Bag 1 BAG IVPB SCH (17:42)
[2022-04-19] MEDS: HumaLOG 300 UNITS/3 ML VIAL SC PRN (01:14)
[2022-04-19] MEDS: Cefepime 1 GM in Sodium Chloride 0.9% 100 ML IVPB SCH (03:48)
[2022-04-19 05:06] LABS: #Eosinphils 0.3 thou/uL (0.0-0.7); #Lymphocytes 1.1 thou/uL (1.20-3.40); #Neutrophils 6.7 thou/uL (1.40-6.50); %Basophils 0.2 % (0.0-1.0); %Eosinophils 2.9 % (0.0-10.0); %Lymphocytes 11.8 % (21.0-51.0); %Monocytes 11.1 % (0.0-10.0); Mean Corpuscular HGB CONC 34.7 g/dL (32.0-36.0); Mean Corpuscular Hemoglobin 31.9 pg (27.0-31.0); Mean Corpuscular Volume 91.9 fl (78.0-98.0); Mean Platelet Volume 7.3 fL (7.4-10.4); Platelet Count 189 10x3/uL (130-400); RBC Distribution Width 11.8 % (11.5-14.5); Red Blood Cell (RBC) Count 3.46 mill/uL (4.70-6.10); White Blood Cell (WBC) Count 9.1 10x3/uL (4.8-10.8)
[2022-04-19 05:31] LABS: ALT (SGPT) 100 U/L (8-55); AST (SGOT) 82 U/L (5-34); Albumin 2.8 g/dL (3.4-4.8); Alkaline Phosphatase 158 U/L (40-110); Anion Gap 12 mmol/L (10-20); BUN (Urea Nitrogen) 17 mg/dL (8.4-25.7); Bilirubin, Total 1.1 mg/dL (0.2-1.2); Calc. Creatinine Clearance 56 mL/min (70-130); Calcium 8.4 mg/dL (7.8-10.44); Carbon Dioxide 23 mmol/L (23-31); Chloride 104 mmol/L (98-107); Estimated GFR 41; Globulin 2.8 g/dL (2.4-3.5); Glucose 169 mg/dL (83-110); Potassium 3.4 mmol/L (3.5-5.1); Protein, Total 5.6 g/dL (5.8-8.1); Sodium 136 mmol/L (136-145)
[2022-04-19] MEDS: metroNIDAZOLE 500 MG in Premix Bag 1 BAG IVPB SCH (06:20)
[2022-04-19] MEDS: busPIRone HCl 5 MG TAB PO SCH ×3 (06:20→21:19)
[2022-04-19] MEDS: Acetaminophen 325 MG TAB PO PRN (06:32)
[2022-04-19] MEDS ORDERED: Potassium Chloride 20 MEQ TAB PO SCH (10:15)
[2022-04-19] MEDS: Ascorbic Acid 500 mg Chewable Tablet PO SCH (11:45)
[2022-04-19] MEDS: Aspirin 81 mg Enteric Coated Tablet PO SCH (11:46)
[2022-04-19] MEDS: Escitalopram Oxalate 10 mg Tablet PO SCH (11:46)
[2022-04-19] MEDS: Insulin NPH Human Isophane 100 UNIT/ML (10 ML VIAL) SC SCH ×2 (11:46→21:16)
[2022-04-19] MEDS: Magnesium Oxide 250 MG TAB PO SCH (11:47)
[2022-04-19] MEDS: Metoprolol Tartrate 25 MG TAB PO SCH ×2 (11:47→21:19)
[2022-04-19] MEDS: Multivit, Therapeutic 1 TAB PO SCH (11:47)
[2022-04-19] MEDS: Pantoprazole 40 MG VIAL IVP SCH (11:55)
[2022-04-19] MEDS: Ipratropium/Albuterol Sulfate 4 GM AER IH PRN (13:24)
[2022-04-20 05:20] LABS: ALT (SGPT) 79 U/L (8-55); AST (SGOT) 45 U/L (5-34); Albumin 2.9 g/dL (3.4-4.8); Alkaline Phosphatase 182 U/L (40-110); Anion Gap 12 mmol/L (10-20); BUN (Urea Nitrogen) 19 mg/dL (8.4-25.7); Bilirubin, Total 0.9 mg/dL (0.2-1.2); Calc. Creatinine Clearance 53 mL/min (70-130); Calcium 8.5 mg/dL (7.8-10.44); Carbon Dioxide 23 mmol/L (23-31); Chloride 102 mmol/L (98-107); Estimated GFR 38; Glucose 209 mg/dL (83-110); Potassium 3.6 mmol/L (3.5-5.1); Protein, Total 5.9 g/dL (5.8-8.1); Sodium 133 mmol/L (136-145)
[2022-04-20 05:24] LABS: Band 7 % (5-11); Eosinophils 2 % (0-10); Hemoglobin 11.3 g/dL (14.0-18.0); Lymphocytes 11 % (21-51); MDiff Complete? YES; Mean Corpuscular HGB CONC 34.5 g/dL (32.0-36.0); Mean Corpuscular Hemoglobin 31.9 pg (27.0-31.0); Mean Corpuscular Volume 92.4 fl (78.0-98.0); Mean Platelet Volume 7.6 fL (7.4-10.4); Monocytes 8 % (0-10); Neutrophil 72 % (42-75); Platelet Count 242 10x3/uL (130-400); Platelet Morphology Comment Appears Adequate; RBC Distribution Width 12.1 % (11.5-14.5); RBC Morphology Normal; Red Blood Cell (RBC) Count 3.55 mill/uL (4.70-6.10); White Blood Cell (WBC) Count 10.6 10x3/uL (4.8-10.8)
[2022-04-20] MEDS: busPIRone HCl 5 MG TAB PO SCH (05:38)
[2022-04-20] MEDS: HumaLOG 300 UNITS/3 ML VIAL SC PRN (06:22)
[2022-04-20 09:10] VITALS: BP 168/77; TEMP 97.8
[2022-04-20] MEDS: Ascorbic Acid 500 mg Chewable Tablet PO SCH (10:20)
[2022-04-20] MEDS: Aspirin 81 mg Enteric Coated Tablet PO SCH (10:20)
[2022-04-20] MEDS: Insulin NPH Human Isophane 100 UNIT/ML (10 ML VIAL) SC SCH (10:21)
[2022-04-20] MEDS: Escitalopram Oxalate 10 mg Tablet PO SCH (10:21)
[2022-04-20] MEDS: Metoprolol Tartrate 25 MG TAB PO SCH (10:22)
[2022-04-20] MEDS: Multivit, Therapeutic 1 TAB PO SCH (10:22)
[2022-04-20] MEDS: Magnesium Oxide 250 MG TAB PO SCH (10:22)
== END 2022-04-20 13:16 | disposition home or self-care (01) | DRG 871 ==
LOC: ERS 14:28 → CCU 21:46 → T4-A 04-14 16:16 → 2NO 04-15 20:39
PROVIDERS: ADMIT Student in an Organized Health Care Education/Training Program; ATTEND Family Medicine
PROC: 3E043XZ Introduction of Vasopressor into Central Vein, Percutaneous Approach (ICD-10-PCS; principal; 2022-04-13)
PROC: 3E04329 Introduction of Other Anti-infective into Central Vein, Percutaneous Approach (ICD-10-PCS; 2022-04-13)
PROC: 02HV33Z Insertion of Infusion Device into Superior Vena Cava, Percutaneous Approach (ICD-10-PCS; 2022-04-13)
PROC: 4A133R1 Monitoring of Arterial Saturation, Peripheral, Percutaneous Approach (ICD-10-PCS; 2022-04-13)
DX: A41.51 Sepsis due to Escherichia coli [E. coli] (principal); I21.A1 Myocardial infarction type 2; R65.21 Severe sepsis with septic shock; R57.1 Hypovolemic shock; U07.1 COVID-19; J96.01 Acute respiratory failure with hypoxia; N17.9 Acute kidney failure, unspecified; J44.1 Chronic obstructive pulmonary disease with (acute) exacerbation; I69.951 Hemiplegia and hemiparesis following unspecified cerebrovascular disease affecting right dominant side; K80.00 Calculus of gallbladder with acute cholecystitis without obstruction; E11.9 Type 2 diabetes mellitus without complications; I25.10 Atherosclerotic heart disease of native coronary artery without angina pectoris; E83.39 Other disorders of phosphorus metabolism; E83.42 Hypomagnesemia; E11.40 Type 2 diabetes mellitus with diabetic neuropathy, unspecified; F41.9 Anxiety disorder, unspecified; F32.A Depression, unspecified; E11.65 Type 2 diabetes mellitus with hyperglycemia; E11.22 Type 2 diabetes mellitus with diabetic chronic kidney disease; N18.30 Chronic kidney disease, stage 3 unspecified; G47.33 Obstructive sleep apnea (adult) (pediatric); K21.9 Gastro-esophageal reflux disease without esophagitis; Z79.82 Long term (current) use of aspirin; Z79.899 Other long term (current) drug therapy; Z95.5 Presence of coronary angioplasty implant and graft
CPT/HCPCS: 36415; 36416; 36556; 70450; 71045; 74177; 76705; 78227; 80048; 80053; 80074; 80076; 80202; 81003; 81015; 82553; 82805; 83036; 83516; 83605; 83690; 83735; 84100; 84484; 85025; 86015; 86038; 86225; 87040; 87077; 87086; 87149; 87186; 93005; 93010; 93306; 96365; 96366; 96367; 96375; A9537; C9113; J0692; J1160; J1650; J1815; J2272; J2405; J3370; J3370-JW; J3475; J3490; J3535; J7050; J7611; J7620; U0002

== ENCOUNTER 2022-05-22 11:22 | Day surgery (SDC) | payer MEDICARE, OTHER ==
[2022-05-22] MEDS ORDERED: Ketorolac Tromethamine 30 MG/ML VIAL ONE (12:46)
[2022-05-22] MEDS ORDERED: Acetaminophen 500 MG TAB ONE (12:46)
[2022-05-22 12:49] LABS: #Eosinphils 0.2 thou/uL (0.0-0.7); #Lymphocytes 1.4 thou/uL (1.20-3.40); #Monocytes 0.4 thou/uL (0.11-0.59); #Neutrophils 3.6 thou/uL (1.40-6.50); %Basophils 0.8 % (0.0-1.0); %Eosinophils 4.2 % (0.0-10.0); %Lymphocytes 23.9 % (21.0-51.0); %Monocytes 6.7 % (0.0-10.0); %Neutrophils 64.4 % (42.0-75.0); Hemoglobin 11.8 g/dL (14.0-18.0); Mean Corpuscular HGB CONC 33.3 g/dL (32.0-36.0); Mean Corpuscular Volume 90.1 fl (78.0-98.0); Mean Platelet Volume 8.8 fL (7.4-10.4); Platelet Count 171 10x3/uL (130-400); RBC Distribution Width 12.8 % (11.5-14.5); Red Blood Cell (RBC) Count 3.92 mill/uL (4.70-6.10); White Blood Cell (WBC) Count 5.7 10x3/uL (4.8-10.8)
[2022-05-22] MEDS ORDERED: FENTANYL 50 MCG/ML 1 ML VIAL ONE ×4 (14:31→16:10)
[2022-05-22] MEDS ORDERED: PROPOFOL 200 MG/20 ML VIAL ONE (14:49)
[2022-05-22] MEDS ORDERED: NEOSTIGMINE 3 MG/3 ML SYR 3 MG/3 ML SYRINGE ONE (14:49)
[2022-05-22] MEDS ORDERED: Rocuronium Bromide 10 MG/ML (10ML VIAL) ONE (14:49)
[2022-05-22] MEDS ORDERED: Esmolol 100 MG/10 ML VIAL ONE (14:49)
[2022-05-22] MEDS ORDERED: ePHEDrine 50 MG/ML VIAL ONE (14:49)
[2022-05-22] MEDS ORDERED: Glycopyrrolate 0.2 MG/ML 5 ML SYRINGE ONE (14:49)
[2022-05-22] MEDS ORDERED: Lidocaine 1% PF 5 ML VIAL ONE (14:49)
[2022-05-22 15:18] LABS: Anion Gap 12 mmol/L (10-20); BUN (Urea Nitrogen) 32 mg/dL (8.4-25.7); Calc. Creatinine Clearance 0 mL/min (70-130); Calcium 9.5 mg/dL (7.8-10.44); Carbon Dioxide 25 mmol/L (23-31); Chloride 109 mmol/L (98-107); Estimated GFR 44; Glucose 91 mg/dL (83-110); Potassium 4.5 mmol/L (3.5-5.1); Sodium 141 mmol/L (136-145)
== END 2022-05-22 17:49 | disposition home or self-care (01) ==
LOC: SDC 11:22
PROVIDERS: ATTEND Specialist
PROC: 0FT44ZZ Resection of Gallbladder, Percutaneous Endoscopic Approach (ICD-10-PCS; principal; 2022-05-22)
DX: K80.12 Calculus of gallbladder with acute and chronic cholecystitis without obstruction (principal); I69.351 Hemiplegia and hemiparesis following cerebral infarction affecting right dominant side; I10 Essential (primary) hypertension; I45.10 Unspecified right bundle-branch block; I25.10 Atherosclerotic heart disease of native coronary artery without angina pectoris; E78.5 Hyperlipidemia, unspecified; E11.9 Type 2 diabetes mellitus without complications; J44.9 Chronic obstructive pulmonary disease, unspecified; Z86.16 Personal history of COVID-19; Z79.84 Long term (current) use of oral hypoglycemic drugs; Z79.82 Long term (current) use of aspirin; Z79.2 Long term (current) use of antibiotics; Z79.899 Other long term (current) drug therapy
CPT/HCPCS: 47562; 80048; 85025; 93005; J3010; 88304; 93010; C1889; J1885; J1956; J2704; J3490